=== PATIENT | female | born 1950 | race Caucasian/White ===

== ENCOUNTER 2022-10-17 06:02 | Day surgery (SDC) | payer MEDICARE, OTHER, SELFPAY ==
[2022-10-17] VITALS (27 sets, daily range): BP systolic 106–183; BP diastolic 59–107; PULSE 58–109; RESP 12–18; TEMP 35.8–36.8; O2SAT 91–100; BMI 38.5
[2022-10-17] MEDS: CELECOXIB 200 MG CAPSULE PO (06:30)
[2022-10-17] MEDS: OXYCODONE (CR) 10 MG TAB.ER.12H PO (06:30)
[2022-10-17] MEDS: ACETAMINOPHEN 500 MG TABLET 1000 MG PO ×2 (06:30→14:18)
[2022-10-17] MEDS: SODIUM CHLORIDE 0.9 % (FLUSH) 10 ML SYRINGE IVF (06:45)
[2022-10-17] MEDS: LACTATED RINGERS 1000 ML 1,000 ML 100 ML IV ×2 (06:45→08:18)
[2022-10-17] MEDS: MIDAZOLAM HCL 1 MG/ML inj IVP (07:08)
[2022-10-17] MEDS: fentaNYL 100 MCG/2 ML inj IVP (07:09)
--- NOTE | 2022-10-17 07:15 | CRLHL7_ITS ---
For Patients: As a result of the Cures Act, medical imaging exams and procedure reports are released immediately into your electronic medical record. You may view this report before your referring provider. If you have questions, please contact your health care provider. Indication: Hip replacement surgery Technique: AP hip fluoroscopic images. Fluoroscopy time 64.5 seconds. Findings/Impression: Hardware from a right total hip arthroplasty is in satisfactory position. Dictated by Ciro Ruby MD @ 10/17/2022 10:23:57 AM (Electronically Signed)
--- NOTE | 2022-10-17 07:15 | SUR.PREOP ---
TIME?OUT:?0708 PT/RN/MDA?VERIFICATION?OF?SURGICAL?SITE,?PROCEDURE,?AND?CONSENT OBTAINED?PRIOR?TO?INVASIVE?PROCEDURE.
[2022-10-17] MEDS: CEFAZOLIN 2 GM INJ IVP (07:45)
[2022-10-17] MEDS: TRANEXAMIC ACID 100 MG/ML INJ 1000 MG IV (07:50)
--- NOTE | 2022-10-17 09:05 | P.NB_ITS ---
Nerve Block Nerve Block Time Seen by Provider: 07:12 Date Seen: 10/17/22 Type of block requested by surgeon for post-operative analgesia: AMELIA/LFCN Side: right Time out performed: Yes Verification of patient name: Yes Verification of date of : Yes Site marking: site marked Name of person performing procedure: Hunter Continuous monitoring Was continuous monitoring of O2 sat, B/P, relationship associate, recorded every 15 minutes?: Yes Procedure Checklist: sterile prep, needles and gloves Ultrasound guided. Images saved: Yes Medications given in 5ml increments after negative aspiration: Ropivicaine %: 0.5 mL: 30 Needle gauge: 20 Decadron (mg): 10 Precedex (mcg): 25 Patient tolerated procedure well: Yes Additional comments: Needle noted below psoas tendon needle noted adjacent to LFCN Block Charges Block Charge (with Pro Fee): Other Periph Nerve Block Use of Ultrasound Machine for Block: Yes- US Guidance/pain block
--- NOTE | 2022-10-17 09:05 | W.ANESCHARGE ---
Anesthesia Charges Start Date/Time Anesthesia Start Date: 10/17/22 Anesthesia Start Time: 07:36 Stop Date/Time Anesthesia Stop Date: 10/17/22 Anesthesia Stop Time: 10:04 Summary Extremes of Age - Over 70 or under 1: MDA
--- NOTE | 2022-10-17 09:20 | CRLHL7_ITS ---
For Patients: As a result of the Cures Act, medical imaging exams and procedure reports are released immediately into your electronic medical record. You may view this report before your referring provider. If you have questions, please contact your health care provider. Indication: POST OP KAITLYN Technique: AP hip centered pelvis and lateral view right hip. Findings/Impression: Hardware from a right total hip arthroplasty is in satisfactory position. Bone alignment is normal. No sign of acute fracture. Postop changes are within normal limits. Dictated by Ciro Ruby MD @ 10/17/2022 11:12:06 AM (Electronically Signed)
--- NOTE | 2022-10-17 09:22 | P.ORPRC_ITS ---
Procedure Note Date of procedure: 10/17/22 Procedure: PREOPERATIVE DIAGNOSIS: Right hip osteoarthritis POSTOPERATIVE DIAGNOSIS: Right hip osteoarthritis NAME OF OPERATION: Right total hip arthroplasty SURGEON: Will Yoder MD [employer] OPERATOR: Martha Calles PA-C, DESTINEY Quigley IMPLANTS: 1. [employer] [place] # 54 sector ingrowth cup 2. 36 x 54 +4 neutral polyethylene 3. Actis # 6 standard collared ingrowth stem 4. 36 + 8.5 ceramic femoral head ANESTHESIA: General ESTIMATED BLOOD LOSS: 300 cc COMPLICATIONS: None SPECIMENS: None DRAINS: None PREOPERATIVE ANTIBIOTICS: Ancef 2 grams INDICATIONS: The patient is a 72-year-old with a longstanding history of severe, unrelenting right hip pain secondary to end-stage right hip osteoarthritis. Despite appropriate nonoperative management, including activity modification, use of an assist device, anti-inflammatories, [id number] pain medication, physical therapy and injections, they continue to have pain and disability. Operative intervention was offered. The risks, benefits and expected outcomes were discussed in detail. These included but were not limited to: Infection, bleeding, injury to blood vessel or nerve, venous thromboembolism. All questions were answered to their satisfaction. Use of an shop assistant was necessary throughout the case for patient positioning and safety, soft tissue retraction and closure. PROCEDURE: The patient was placed supine on the [place] table. General anesthesia was administered. The shop assistant made sure the patient was properly positioned. The right hip was prepped and draped in the usual sterile fashion. The image intensifier was brought in for a perfect AP pelvis and a perfect double tear drop AP view of each hip which were used for intraoperative templating with our fluoroscopic guide. An oblique incision was made 3 cm distal and 3 cm lateral to the anterior super ior iliac spine. The shop assistant retracted the soft tissues to protect them. Subcutaneous dissection was taken with electrocautery to the superficial fascia. The fascia was divided in line with the incision. Blunt dissection was carried medially to the tensor fascia vinod and sartorius interval. Deep dissection was carried with electrocautery. The circumflex vessels were cauterized and divided. The capsule was exposed and then divided in a T-fashion, tagged with #1 Ethibond sutures. Retractors were placed in the joint, held by the shop assistant. The corkscrew was placed in the femoral head. The neck cut was made in the subcapital region. We made a second neck cut more distal. The napkin ring of bone was removed. The femoral head was removed intact. Acetabular retractors were placed, held by the shop assistant. The labrum was sharply debrided. The capsule was released. The 43 mm reamer was used to the true medial wall. We then enlarged in 2 mm increments using the image intensifier for our reamer placement. We impacted the cup which had excellent purchase. We placed the hole eliminator and the polyethylene. Attention was then turned to the proximal femur. The limb was placed in 140 degrees of external rotation, maximum extension and adduction. A significant amount of time was spent releasing the capsule to allow us to deliver the femur into the wound and complete the femoral side safely. Retractors were held by the shop assistant throughout the femoral preparation. The juke box servicer and canal finder were used. Broaches were used to a stable size. The calcar reamer was used. Trial components were placed. The hip was reduced and was found to be stable with appropriate soft tissue tension. Length and offset had been nicely restored using the image intensifier and our fluoroscopic guide. Trial components were removed. The stem was impacted. We placed the femoral head. Again, the hip was reduced and was found to be stable with appropriate soft tissue tension. Length and offset had been nicely restored. The shop assistant did a three minute dilute Betadine solution soak. The shop assistant irrigated the wound with 3 liters of normal saline via pulse lavage. The shop assistant repaired the anterior capsule with a #1 Vicryl and our previously placed Ethibond sutures. The shop assistant closed the fascia over the tensor fascia vinod with a #1 PDO Stratafix, subcutaneous tissues with 2-0 Vicryl, skin with a running 3-0 Stratafix and glue. A dry dressing was applied by the shop assistant. Sponge and needle counts were correct x 2. The patient tolerated the procedure well; there were no apparent complications. They were awakened and extubated in the operating room, sent to the Post-Anesthesia Care Unit in satisfactory condition. PLAN: 1. The patient will be mobilized with physical therapy, weight-bearing as tolerates 2. Xarelto x 5 days then aspirin x 30 days will be used for DVT prophylaxis 3. The patient will be discharged once medically appropriate
--- NOTE | 2022-10-17 10:05 | W.ANESCHARGE ---
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
[2022-10-17] MEDS: LACTATED RINGERS 1000 ML 1,000 ML 75 ML IV (10:50)
[2022-10-17] MEDS: ONDANSETRON 2 MG/ML inj 4 MG IVP (12:12)
--- NOTE | 2022-10-17 13:46 | P.IMCN_ITS ---
Date of Consult Patient: [place] Patient Consult date: 10/17/22 Primary Care Provider: Cinthya Tolliver, DO Consult Narrative Reason for consult: Medical management of comorbidities Narrative: Marcelina Benson is a 72 year old female who presented to the hospital today for an elective RTH A. There were no surgical or anesthetic complications noted during procedure. Patient's H&P reviewed, PCP is Dr Tolliver. No concerning findings on Preoperative note. Past medical history significant for: reflux esophagitis, essential HTN, elevated coronary calcium score (on ASA and statin). History of blood clots: No Postoperative plan: Home with Since arrival to the floor, patient has had elevated BP (didn't take her Lisinopril this morning). Review of Systems Status of ROS: Reports: 10 or more systems reviewed and unremarkable except as noted in History and below Narrative: + nausea postoperatively PFSH PFSH Medical History (Updated 10/17/22 @ 14:08 by Oralia Ortiz MD) Stage 3 chronic kidney disease ?N18.30 - Chronic kidney disease, stage 3 unspecified (ICD-10) Vitamin D deficiency ?E55.9 - Vitamin D deficiency, unspecified (ICD-10) Dysthymic disorder ?F34.1 - Dysthymic disorder (ICD-10) Reflux esophagitis ?K21.00 - Gastro-esophageal reflux disease with esophagitis, without bleeding (ICD-10) Hypertension ?I10 - Essential (primary) hypertension (ICD-10) Hyperlipidemia ?E78.5 - Hyperlipidemia, unspecified (ICD-10) GERD (gastroesophageal reflux disease) ?K21.9 - Gastro-esophageal reflux disease without esophagitis (ICD-10) Hematemesis ?K92.0 - Hematemesis (ICD-10) Gastroenteritis ?K52.9 - Noninfective gastroenteritis and colitis, unspecified (ICD-10) Surgical History (Updated 10/17/22 @ 14:08 by Oralia Ortiz MD) History of open reduction and internal fixation (ORIF) procedure ?Z98.890 - Other specified postprocedural states (ICD-10) History of tonsillectomy and adenoidectomy ?Z90.89 - Acquired absence of other organs (ICD-10) History of salpingo-oophorectomy ?Z90.79 - Acquired absence of other genital organ(s) (ICD-10) ?Z90.721 - Acquired absence of ovaries, unilateral (ICD-10) History of cholecystectomy ?Z90.49 - Acquired absence of other specified parts of digestive tract (ICD- 10) Hx of appendectomy ?Z90.49 - Acquired absence of other specified parts of digestive tract (ICD- 10) Family History (Updated 10/04/22 @ 12:29 by Darlene Miranda RN) Brother Skin cancer Sister Skin cancer Mother Diabetes Father Myocardial infarction Peripheral artery disease Social History Highest level of school completed/degree received: GED or equivalent Smoking Status: Never smoker Do you use any of these nicotine containing products: None How often do you have a drink containing alcohol: monthly or less Alcohol type: beer, wine and hard liquor How many standard drinks containing alcohol do you have on a typical day: 1 or 2 How often do you have six or more drinks on one occasion: Never AUDIT-C Alcohol total score: 1 Non-prescribed substance use: denies use Caffeine: Yes (black tea, iced tea, Coke 1/day) service: No Meds Home Medications and Allergies Home Medications Medication Instructions Recorded Confirmed Type aspirin 81 mg tablet,delayed 81 mg PO QDAY 10/02/22 10/17/22 History release (Adult Aspirin Regimen) atorvastatin 20 mg tablet 20 mg PO HS 10/02/22 10/17/22 History fluoxetine 10 mg capsule 30 mg PO DAILY 10/02/22 10/17/22 History lisinopril 30 mg tablet 30 mg PO DAILY 10/02/22 10/17/22 History multivit with min-folic 1 tab PO QDAY 10/02/22 10/17/22 History acid-lutein 400 mcg-250 mcg chewable tablet (Centrum Silver) omeprazole 40 mg capsule,delayed 40 mg PO DAILY 10/02/22 10/17/22 History release vibegron 75 mg tablet (Gemtesa) 75 mg PO DAILY 10/02/22 10/17/22 History biotin 10,000 mcg capsule 10,000 mcg PO DAILY 10/17/22 10/17/22 History Allergies Allergy/AdvReac Type Severity Reaction Status Date / Time penicillin V Allergy Hives Verified 10/17/22 06:37 Sulfa (Sulfonamide Allergy Hives Verified 10/17/22 06:37 Antibiotics) Exam Narrative: Exam Narrative: GEN: Sleepy but arousable, nontoxic HEENT: EOMIs bilaterally, no scleral icterus CV: RRR, No concerning murmurs R: LCTA bilaterally without concerning wheezing, air movement adequate Ext: wwp, no concerning edema Skin: No concerning skin lesions or rashes on exposed skin Neuro: Nonfocal Psych: Appropriate Const: Vital Signs, click to edit/add: Vital Signs - 24 hr 10/17/22 06:27 10/17/22 07:10 10/17/22 07:15 Temperature 97.1 F L Pulse Rate 75 65 60 Pulse Rate [Left P ulse Oximeter] Respiratory Rate 16 16 16 Blood Pressure 155/81 H 130/61 115/64 Blood Pressure [Ri ght Arm] Pulse Oximetry 97 96 96 Oxygen Delivery Me thod Room Air Nasal Cannula Nasal Cannula Oxygen Flow Rate 2 2 10/17/22 07:20 10/17/22 07:25 10/17/22 07:30 Temperature Pulse Rate 69 60 58 L Pulse Rate [Left P ulse Oximeter] Respiratory Rate 16 16 16 Blood Pressure 110/69 106/59 L 106/63 Blood Pressure [Ri ght Arm] Pulse Oximetry 96 96 96 Oxygen Delivery Me thod Nasal Cannula Nasal Cannula Nasal Cannula Oxygen Flow Rate 2 2 2 10/17/22 10:00 10/17/22 10:05 10/17/22 10:10 Temperature 97.9 F Pulse Rate 94 94 89 Pulse Rate [Left P ulse Oximeter] Respiratory Rate 16 16 14 Blood Pressure 143/89 H 153/88 H 131/80 Blood Pressure [Ri ght Arm] Pulse Oximetry 98 98 97 Oxygen Delivery Me thod Nasal Cannula Oxygen Flow Rate 2 10/17/22 10:15 10/17/22 10:20 10/17/22 10:25 Temperature 97.0 F L Pulse Rate 92 84 88 Pulse Rate [Left P ulse Oximeter] Respiratory Rate 14 12 14 Blood Pressure 133/100 H 167/87 H 146/88 H Blood Pressure [Ri ght Arm] Pulse Oximetry 95 97 95 Oxygen Delivery Me thod Room Air Oxygen Flow Rate 10/17/22 10:29 10/17/22 10:34 10/17/22 10:45 Temperature 96.4 F L 96.7 F L Pulse Rate 92 Pulse Rate [Left P ulse Oximeter] 88 91 Respiratory Rate 14 18 18 Blood Pressure 139/84 Blood Pressure [Ri ght Arm] 166/95 H 159/96 H Pulse Oximetry 95 94 94 Oxygen Delivery Me thod Room Air Room Air Oxygen Flow Rate 10/17/22 10:55 10/17/22 11:00 10/17/22 11:15 Temperature 96.4 F L 96.8 F L 97.0 F L Pulse Rate 88 Pulse Rate [Left P ulse Oximeter] 87 95 Respiratory Rate 18 18 18 Blood Pressure [facility] 166/95 H 165/99 H 160/92 H Pulse Oximetry 97 93 Oxygen Delivery Me thod Room Air Room Air Room Air Oxygen Flow Rate 10/17/22 11:30 10/17/22 12:00 Temperature 97.3 F L 97.3 F L Pulse Rate Pulse Rate [Left P ulse Oximeter] 93 93 Respiratory Rate 18 18 Blood Pressure Blood [facility] 142/94 H 164/99 H Pulse Oximetry 93 100 Oxygen Delivery Me thod Room Air Room Air Oxygen Flow Rate Assessment and Plan Assessment and plan (1) S/P hip replacement: Problem comment: - R, 10/17/22, Dr. Yoder Status: Acute (2) GERD (gastroesophageal reflux disease): Problem comment: - continue home PPI Status: Acute (3) Hypertension: Problem comment: - continue home medications Status: Acute (4) Hyperlipidemia: Problem comment: - continue home statin Status: Acute Plan - pain management and prophylaxis per Ortho - anticipate routine postoperative course - continue home medications
[2022-10-17] MEDS: CEFAZOLIN 2 GM in 0.9 % SODIUM CHLORIDE Mini-bag 100 ML IVPB ×2 (14:19→21:31)
--- NOTE | 2022-10-17 15:49 | PC.NURSE ---
Pt. up to floor at 1034. Sedated and sleepy. Pt's dressing to right hip c/D/I. Pt. had some Nausea, Zofran administered x1. Denies pain, only used scheduled tylenol x1. IV in L hand patent, Active ice to op site, Florentin Teds and SCD's. Tolerating ice chips, fluids. Up to commode x1 and voided 100cc.
[2022-10-17] MEDS: SENNOSIDES 1 TAB TABLET 2 TAB PO (21:29)
[2022-10-17] MEDS: ATORVASTATIN 10 MG TABLET 20 MG PO (21:29)
--- NOTE | 2022-10-17 22:58 | PC.NURSE ---
Shift Summary: Patient pleasant and cooperative. Up with one assist, walker and gait belt. Ice pack to surgical site, dressing dry and intact. Denies pain even with ambulation. Voiding well. Poor appetite, some nausea with movement that quickly resolves. New IV placed in right wrist by ORLIN Atwood. Vitals stable and WNL. Lung sounds clear.
[2022-10-18] MEDS: ACETAMINOPHEN 500 MG TABLET 1000 MG PO ×2 (00:17→06:34)
[2022-10-18 03:00] VITALS: BP 147/76; PULSE 76; RESP 16; TEMP 36.7; O2SAT 94
[2022-10-18] MEDS: OMEPRAZOLE 20 MG CAPSULE DR 40 MG PO (06:33)
--- NOTE | 2022-10-18 06:43 | PC.NURSE ---
[id number]: Patient did well overnight. No acute distress. Patient had no c/o pain. Patient remained VSS. Patient with no n/v. Patient tolerating fluids and urinating well.
[2022-10-18 06:52] LABS: Hematocrit 32.5 % (33.0-51.0); Hemoglobin* 10.8 gm/dL (12.0-16.0); Immature Granulocytes Abs Auto 0.02 K/uL (0.00-0.30); Immature Granulocytes Pct Auto 0.2 %; Lymphocytes Percent Auto 5.2 % (20-44); Mean Corpuscular HGB Conc 33 gm/dL (32-36); Mean Corpuscular Hemoglobin 28 pg (26-34); Mean Corpuscular Volume 83 fL (80-100); Monocytes Percent Auto 7.8 % (0.0-11.0); Neutrophils Percent Auto 86.8 % (42.0-72.0); Platelet Count* 221 K/uL (140-440); RDW Coefficient of Variation % 13.1 % (11.5-15.5); Red Blood Count 3.91 m/uL (4.00-5.20); White Blood Count* 10.72 K/uL (4.50-11.00)
[2022-10-18 06:58] LABS: Slide Review Reflex No
[2022-10-18 07:16] LABS: Potassium* 4.6 mmol/L (3.6-5.1); Sodium* 135 mmol/L (135-149)
[2022-10-18 07:19] LABS: Blood Urea Nitrogen* 14 mg/dL (7-30); Creatinine* 0.8 mg/dL (0.5-1.5); Est. Creatinine Clearance* 50.91; Estimated Glomerular Filt Rate 79 ml/min
[2022-10-18 07:46] VITALS: BP 153/73; PULSE 70; RESP 20; TEMP 36.9; O2SAT 97
[2022-10-18] MEDS: lisinopriL 10 MG TABLET 30 MG PO (08:09)
[2022-10-18] MEDS: RIVAROXABAN 10 MG TABLET PO (08:10)
[2022-10-18] MEDS: OXYCODONE 5 MG TABLET PO (08:10)
[2022-10-18] MEDS: FLUOXETINE HCL 10 MG CAPSULE 30 MG PO (08:10)
[2022-10-18] MEDS: SENNOSIDES 1 TAB TABLET 2 TAB PO (08:16)
--- NOTE | 2022-10-18 08:23 | PM.ORPN ---
Subjective Subjective Time Seen by Provider: 07:30 Date Seen: 10/18/22 Principal diagnosis: Status post right hip replacement Interval history: Marcelina is trouble this morning. She will be going home upon discharge. Her Mason will be assisting her in the home. Ortho Exam Narrative Exam Narrative: Alert and oriented x3. Patient is in no acute distress. Converses without labored breathing. Hearing is grossly intact. Ambulates with a walker. Examination of the right lower extremity shows the dressing is intact. Mild ecchymosis. Mild soft tissue edema. CMS is intact right lower extremity. Bilateral calves are soft and nontender. Const Vital Signs, click to edit/add: Vital Signs - 24 hr 10/17/22 10:00 10/17/22 10:05 10/17/22 10:10 Temperature 97.9 F Pulse Rate 94 94 89 Pulse Rate [Left Pulse Oximeter] Respiratory Rate 16 16 14 Blood Pressure 143/89 H 153/88 H 131/80 Blood Pressure [Right Arm] Pulse Oximetry 98 98 97 Oxygen Delivery Method Nasal Cannula Oxygen Flow Rate 2 10/17/22 10:15 10/17/22 10:20 10/17/22 10:25 Temperature 97.0 F L Pulse Rate 92 84 88 Pulse Rate [Left Pulse Oximeter] Respiratory Rate 14 12 14 Blood Pressure 133/100 H 167/87 H 146/88 H Blood Pressure [Right Arm] Pulse Oximetry 95 97 95 Oxygen Delivery Method Room Air Oxygen Flow Rate 10/17/22 10:29 10/17/22 10:34 10/17/22 10:45 Temperature 96.4 F L 96.7 F L Pulse Rate 92 Pulse Rate [Left Pulse Oximeter] 88 91 Respiratory Rate 14 18 18 Blood Pressure 139/84 Blood Pressure [Right Arm] 166/95 H 159/96 H Pulse Oximetry 95 94 94 Oxygen Delivery Method Room Air Room Air Oxygen Flow Rate 10/17/22 10:55 10/17/22 11:00 10/17/22 11:15 Temperature 96.4 F L 96.8 F L 97.0 F L Pulse Rate 88 Pulse Rate [Left Pulse Oximeter] 87 95 Respiratory Rate 18 18 18 Blood Pressure Blood Pressure [Right Arm] 166/95 H 165/99 H 160/92 H Pulse Oximetry 97 93 Oxygen Delivery Method Room Air Room Air Room Air Oxygen Flow Rate 10/17/22 11:30 10/17/22 12:00 10/17/22 12:30 Temperature 97.3 F L 97.3 F L 97.3 F L Pulse Rate Pulse Rate [Left Pulse Oximeter] 93 93 88 Respiratory Rate 18 18 18 Blood Pressure Blood Pressure [Right Arm] 142/94 H 164/99 H 156/90 H Pulse Oximetry 93 100 93 Oxygen Delivery Method Room Air Room Air Room Air Oxygen Flow Rate 10/17/22 13:00 10/17/22 14:00 10/17/22 15:00 Temperature 97.8 F 97.6 F 96.8 F L Pulse Rate Pulse Rate [Left Pulse Oximeter] 85 88 100 Respiratory Rate 18 18 16 Blood Pressure Blood Pressure [Right Arm] 166/107 H 183/99 H 152/90 H Pulse Oximetry 94 93 93 Oxygen Delivery Method Room Air Room Air Room Air Oxygen Flow Rate 10/17/22 16:00 10/17/22 18:39 10/17/22 23:00 Temperature 96.8 F L 97.8 F 98.2 F Pulse Rate Pulse Rate [Left Pulse Oximeter] 79 78 109 H Respiratory Rate 14 16 Blood Pressure Blood Pressure [Right Arm] 145/79 H 152/73 H 162/104 H Pulse Oximetry 91 94 95 Oxygen Delivery Method Room Air Room Air Room Air Oxygen Flow Rate 10/17/22 23:00 10/18/22 03:00 Temperature 98.1 F Pulse Rate Pulse Rate [Left Pulse Oximeter] 109 H 76 Respiratory Rate 16 16 Blood Pressure Blood Pressure [Right Arm] 147/76 H Pulse Oximetry 94 Oxygen Delivery Method Room Air Oxygen Flow Rate Assessment and Plan Assessment and plan (1) S/P hip replacement: Problem details: - R, 10/17/22, Dr. Yoder Status: Acute Assessment and Plan: Plan for discharge is today to home if they meet discharge criteria. DVT prophylaxis includes Xarelto 10 mg daily for total of 5 days, then aspirin 81 mg twice daily for 30 days, Latrell stockings x1 month may remove for 1 hr per day, frequent ambulation Remove dressing 1 week. Observe wound and phone Orthopedics with any questions or concerns Use Ice on operative hip unrestricted. Return to clinic in 1 week with PA for a wound check Return to clinic in [address] Yoder Minimize narcotic use. Wean off and discontinue soon as possible. Activities as tolerated. No strenuous activity. Attend outpt PT (2) GERD (gastroesophageal reflux disease): Problem details: - continue home PPI Status: Acute (3) Hypertension: Problem details: - continue home medications Status: Acute (4) Hyperlipidemia: Problem details: - continue home statin Status: Acute
--- NOTE | 2022-10-18 12:06 | PC.SOCIAL ---
Per therapy, pt is moving around well with minimal pain. Pt has assistance at home with family members. There are no identified social work needs.
--- NOTE | 2022-10-18 13:15 | PC.NURSE ---
Pt alert and oriented during shift. Pt had pain of 2 during shift. See EMAR for intervention. Pt SBA. Pt's dressing dry and intact. Pt discharged home with . Pt has out Pt therapy set up and follow up appointment with PA scheduled. Pt educated on use of IS, Activity, Medications, SS of infection and when to follow up/return to hospital.
== END 2022-10-18 11:20 | disposition home or self-care (01) ==
LOC: OR 06:02 → MEDSURG 06:06
PROVIDERS: PCP Family Medicine; Visit Provider Orthopaedic Surgery
PROC: (CPT 27130; principal; 2022-10-17 07:15)
DX: M16.11 Unilateral primary osteoarthritis, right hip (principal); G89.18 Other acute postprocedural pain; K21.00 Gastro-esophageal reflux disease with esophagitis, without bleeding; I12.9 Hypertensive chronic kidney disease with stage 1 through stage 4 chronic kidney disease, or unspecified chronic kidney disease; N18.30 Chronic kidney disease, stage 3 unspecified; E78.5 Hyperlipidemia, unspecified
CPT/HCPCS: 27130; 01214; 36415; 64450; 73501; 76000; 76942; 82565; 84132; 84295; 84520; 85025; 97110; 97116; 97161; 97165; 97530; 97535; 99100; A9270; C1776; J0330; J0690; J1100; J1170; J2250; J2405; J2704; J2795; J3010; J3490; J7120

== ENCOUNTER 2022-12-07 10:15 | Outpatient (RCR) | payer MEDICARE, OTHER, SELFPAY ==
--- NOTE | 2022-10-03 12:38 | PT.OPEX ---
[facility] INITIAL EVAL REQUIRES SIGNATURE PT [facility] Outpatient Eval Start: 10/03/22 07:34 Freq: Status: Active Protocol: Document 10/03/22 07:35 TERRY (Rec: 10/03/22 12:35 TERRY [id number]) E-signed By Jamie Owen DPT Physical Therapy Outpatient Evaluation Insurance Information Recert Due Date 12/27/22 Insurance Name Medicare B Medical Diagnosis R hip OA R KAITLYN DOS 10/17/22 Treating Diagnosis R hip pain muscle weakness Referring MD david duque Subjective Subjective Marcelina comes into clinic for a pre op visit prior to her 10/17 R KAITLYN surgery. States she has been dealing with hip pain for years now. Has tried cortisone injection that helped for awhile but stopped being as effective. Did see Dr Kramer yesterday where they decided replacement is needed. HAs not been able to walk too long due to her hip pain the last several. Notes she goes up the stairs one at a time and side way in order to perform them noticeably. Pain Comments -12/28 Date of Surgery (If applicable) 10/17/22 Current Work Status Retired Precautions Treatment Precautions/Contraindications depression, arthritis allergies Objective Other/Pertinent Objective GAIT ambulates in step through pattern with increased weight shift over R stance. HIP ROM Flexion: 85 degrees before pain Extension: neutral Internal Rotation: 10 degrees before pain External Rotation 45 Abduction LLE MMT: WNL ON L Hip flexion: R 4/5 Hip abduction: R 3+/5 Knee flexion: R 4+/5 Knee extension: R4 /5 Assessment Assessment/Impression .assess Pt is a 72 yr old female who presents with concerns of R hip OA . Patient also has notable objective findings including limited ROM, impaired balance, decreased strength also likely contributing to the problem. Patient is a good candidate for skilled therapy to target deficits described above. Skilled PT intervention is necessary for use of therapeutic exercise manual therapy, neuromuscular re- education, gait training, and therapeutic activity. Functional impairments include difficulty with: walking, standing, stairs transfers . See appropriate sections of PT eval for complete list of goals and POC. D/C plan and criteria is for pt to achieve the goals as listed below or until max rehab potential is met. 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 of pain/symptoms 2) Pt will improve hip AROM at least 0-90* for improved sit to stand transfers 3) Patient will ascend/descend at least 12 steps using single rail and reciprocal pattern to improve ease of mobility at home/community 4)Pt will ambulate at least 45 -60 minutes with SPC to no device, minimal antalgic gait for improved community mobility Coordination/Communication With Referral Source Treatment Plan/Direct Interventions Gait Training,Joint Mobilization,Manual Therapy, Neuromuscular Re-ed,Self-Care/ Home Management,Therapeutic Activities,Therapeutic Exercises Frequency/Duration 1 x week for 6-10 weeks Patient Will Be Discharged From Therapy Completion of LTG(s), Independent w/HEP Evaluation Billing Untimed Code Treatment Minutes 20 Complexity Low Certification Information Initial Certification Date 10/03/22 Ending Certification Date 12/27/22 Physician Comment/Change : Physician NPI Number #
== END 2022-12-07 12:49 | disposition home or self-care (01) ==
PROVIDERS: PCP Family Medicine; Visit Provider Orthopaedic Surgery
DX: M16.11 Unilateral primary osteoarthritis, right hip (principal); Z51.89 Encounter for other specified aftercare
CPT/HCPCS: 97110; 97112; 97140; 97161; 97164

== ENCOUNTER 2023-09-29 08:55 | Outpatient (CLI) | payer OTHER, SELFPAY | END 2023-09-29 08:56 | disposition home or self-care (01) | LOC: NFLDREF 10-15 16:37 | PROVIDERS: PCP Family Medicine; Referring Provider Family Medicine; Visit Provider Physician Assistant | DX: R30.0 Dysuria (principal); N39.0 Urinary tract infection, site not specified | CPT/HCPCS: 87086; 87186 ==

== ENCOUNTER 2023-10-25 12:56 | Outpatient (CLI) | payer OTHER, SELFPAY | END 2023-10-25 12:57 | disposition home or self-care (01) | PROVIDERS: PCP Family Medicine; Visit Provider Physician Assistant | DX: R30.0 Dysuria (principal) | CPT/HCPCS: 87086; 87186 ==

== ENCOUNTER 2024-03-01 05:57 | Outpatient (CLI) | payer OTHER, SELFPAY | END 2024-03-01 05:58 | disposition home or self-care (01) | LOC: AMB 03-03 21:55 | PROVIDERS: PCP Family Medicine; Visit Provider Emergency Medicine | DX: R41.82 Altered mental status, unspecified (principal) | CPT/HCPCS: A0425; A0427 ==

== ENCOUNTER 2024-03-01 06:25 | Inpatient (IN) | payer OTHER, SELFPAY ==
[2024-03-01] VITALS (9 sets, daily range): BP systolic 154–208; BP diastolic 79–116; PULSE 91–105; RESP 16–20; TEMP 36.7–37.1; O2SAT 90–98; BMI 32.5; BMI 36.0
--- NOTE | 2024-03-01 06:34 | CT_ITS ---
Patient: FRANCISCO JAVIER ZUÑIGA Facility:?[facility] RIS Patient ID:?[id number] Site Patient ID:?[id number]. Site :?[id number] Study:?CT-Head WO STROKE CODE-03/01/2024 6:59:25 AM Ordering Physician:Erick Ledbetter Final Report: INDICATION: Left hemiparesis. TECHNIQUE: CT head without contrast. COMPARISON: None. FINDINGS: CSF spaces: Within normal limits for age. Brain parenchyma and extra-axial spaces: The kelly-white differentiation is normal. No sign of acute ischemia. No sign of mass, hemorrhage, or midline shift. No extra-axial fluid collection. Skull base and calvarium: The visualized paranasal sinuses and mastoid air cells demonstrate no acute or significant findings. The visualized orbits are grossly unremarkable. No skull fractures. IMPRESSION: Unremarkable noncontrast head CT. No sign of acute ischemia or intracranial hemorrhage. Please note that all CT scans at this facility use dose modulation, iterative reconstruction, and/or weight-based dosing when appropriate to reduce radiation dose to as low as reasonably achievable. Dictated by Neftali Weber MD @ 03/01/2024 7:08:34 AM ----- ADDENDUM ----- Results discussed by phone with Dr. Hall at 0715 hours. Dictated by Neftali Weber MD @ Mar 01 2024 7:16AM Signed by:?Neftali Weber MD @03/01/2024 7:08:34 AM (Electronic Signature)
--- NOTE | 2024-03-01 06:34 | CRLHL7_ITS ---
For Patients: As a result of the Century Cures Act, medical imaging exams and procedure reports are released immediately into your electronic medical record. You may view this report before your referring provider. If you have questions, please contact your health care provider. DATE: 03/01/2024 CLINICAL HISTORY: Patient with focal neurological deficits. TECHNIQUE: Standard helical CT image acquisition of the neck up to the skull base after bolus intravenous contrast enhancement. 2D and 3D MIP images for post-processing were performed and interpreted on an independent workstation and 3D images were permanently archived. COMPARISON: CT same day. FINDINGS: The origins of the great vessels from the aortic arch are patent. The origin of the right vertebral artery is patent. The origin of the left vertebral artery is patent. The common carotid arteries are patent. There is plaque without stenosis at the origin of the right internal carotid artery by NASCET criteria. There is a mild (<50%) stenosis at the origin of the left internal carotid artery by NASCET criteria. This is caused by non-calcified plaque with a <2mm residual lumen. The rest of the cervical segments of the internal carotid arteries are patent up to the skull base. The vertebral arteries are codominant. The cervical segments of the vertebral arteries are patent up to the skull base. The visualized lung apices are unremarkable. The thyroid gland is unremarkable. The soft tissues of the neck are unremarkable. There are degenerative changes in the cervical spine. IMPRESSION: Mild (<50%) stenosis at the origin of the left internal carotid artery by NASCET criteria. This is caused by non-calcified plaque with a <2mm residual lumen. Please note that all CT scans at this facility use dose modulation, iterative reconstruction, and/or weight-based dosing when appropriate to reduce radiation dose to as low as reasonably achievable. Dictated by Marcella Felipe MD @ 03/01/2024 10:24:26 AM (Electronically Signed)
--- NOTE | 2024-03-01 06:34 | CRLHL7_ITS ---
For Patients: As a result of the Century Cures Act, medical imaging exams and procedure reports are released immediately into your electronic medical record. You may view this report before your referring provider. If you have questions, please contact your health care provider. DATE: 03/01/2024 CLINICAL HISTORY: Patient with focal neurological deficits. TECHNIQUE: Standard helical CT image acquisition through the intracranial circulation following intravenous administration of contrast material with bolus tracking. 2D and 3D MIP images for post-processing were performed and interpreted on an independent workstation and 3D images were permanently archived. COMPARISON: CT same day. FINDINGS: There is no cerebral aneurysm or large vessel occlusion. The right internal carotid artery is normal. The right middle cerebral artery and its branches are normal. The right anterior cerebral artery and its branches are normal. The left internal carotid artery is normal. The left middle cerebral artery and its branches are normal. The left anterior cerebral artery and its branches are normal. The anterior communicating artery is well visualized and appears normal. The right vertebral artery and PICA are normal. The left vertebral artery and PICA are normal. The left vertebral artery is dominant. The basilar artery is patent and appears normal. The right posterior cerebral artery is normal. The left posterior cerebral artery is normal. The visualized venous structures are patent. IMPRESSION: Patent proximal intracranial vasculature without intracranial aneurysms. Please note that all CT scans at this facility use dose modulation, iterative reconstruction, and/or weight-based dosing when appropriate to reduce radiation dose to as low as reasonably achievable. Dictated by Marcella Felipe MD @ 03/01/2024 10:26:46 AM (Electronically Signed)
--- NOTE | 2024-03-01 06:44 | ED_ITS ---
HPI - General Adult General Date Seen: 03/01/24 Chief complaint: Neuro Symptoms/Altered Deficit Stated complaint: Stroke symptoms Time Seen by Provider: 03/01/24 06:34 Source: EMS, RN notes reviewed and old records reviewed Mode of arrival: EMS Limitations: no limitations History of Present Illness HPI narrative: Patient is a 73-year-old woman brought in by EMS after she awakened this morning noting left hemiparesis. No history of stroke, does have a history of high cholesterol hypertension, no reported atrial fibrillation or anticoagulation. History is provided mostly by EMS who noted significant hypertension, blood sugar of 165 and dense left-sided hemiparesis. In my conversation with her, she denies pain. Related Data Home Medications ?Medication ?Instructions ?Recorded ?Confirmed aspirin 81 mg tablet,delayed 81 mg PO DAILY 10/02/22 03/01/24 release (Adult Aspirin Regimen) atorvastatin 20 mg tablet 20 mg PO HS 10/02/22 03/01/24 fluoxetine 10 mg capsule 30 mg PO DAILY 10/02/22 03/01/24 lisinopril 30 mg tablet 30 mg PO DAILY 10/02/22 03/01/24 multivit with min-folic 1 tab PO DAILY 10/02/22 03/01/24 acid-lutein 400 mcg-250 mcg chewable tablet (Centrum Silver) vibegron 75 mg tablet (Gemtesa) 75 mg PO DAILY 10/02/22 03/01/24 omeprazole 20 mg capsule,delayed 20 mg PO DAILY 10/17/23 03/01/24 release estradiol 0.01% (0.1 mg/gram) 1 g vaginal 2XW 03/01/24 03/01/24 vaginal cream glucosamine-chondroitin 500 mg-400 1 tab PO DAILY 03/01/24 03/01/24 mg tablet (Cosamin DS) miconazole nitrate 2 % topical 1 applic topical BID 03/01/24 03/01/24 cream Allergies Allergy/AdvReac Type Severity Reaction Status Date / Time penicillin V Allergy Intermediate Hives Verified 03/01/24 07:09 Sulfa (Sulfonamide Allergy Intermediate Hives Verified 03/01/24 07:09 Antibiotics) Review of Systems Status of ROS: Reports: 10 or more systems reviewed and unremarkable except as noted in History and below [facility] Medical History (Updated 03/03/24 @ 15:22 by Ruby Parry MD) Recurrent UTI ?N39.0 - Urinary tract infection, site not specified (ICD-10) Overactive bladder ?N32.81 - Overactive bladder (ICD-10) Osteopenia ?M85.80 - Other specified disorders of bone density and structure, unspecified site (ICD-10) Elevated coronary artery calcium score ?R93.1 - Abnormal findings on diagnostic imaging of heart and coronary circulation (ICD-10) Stage 3 chronic kidney disease ?N18.30 - Chronic kidney disease, stage 3 unspecified (ICD-10) Vitamin D deficiency ?E55.9 - Vitamin D deficiency, unspecified (ICD-10) Dysthymic disorder ?F34.1 - Dysthymic disorder (ICD-10) Reflux esophagitis ?K21.00 - Gastro-esophageal reflux disease with esophagitis, without bleeding (ICD-10) Hypertension ?I10 - Essential (primary) hypertension (ICD-10) Hyperlipidemia ?E78.5 - Hyperlipidemia, unspecified (ICD-10) GERD (gastroesophageal reflux disease) ?K21.9 - Gastro-esophageal reflux disease without esophagitis (ICD-10) Hematemesis ?K92.0 - Hematemesis (ICD-10) Gastroenteritis ?K52.9 - Noninfective gastroenteritis and colitis, unspecified (ICD-10) Surgical History (Updated 03/01/24 @ 16:11 by Ruby Parry MD) H/O colonoscopy ?Z98.890 - Other specified postprocedural states (ICD-10) 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) ?Z96.641 - Presence of right artificial hip joint (ICD-10) History of phacoemulsification of cataract of right eye with intraocular lens implantation (09/11/12) ?Z98.41 - Cataract extraction status, right eye (ICD-10) ?Z96.1 - Presence of intraocular lens (ICD-10) History of phacoemulsification of cataract of left eye with intraocular lens implantation (09/25/12) ?Z98.42 - Cataract extraction status, left eye (ICD-10) ?Z96.1 - Presence of intraocular lens (ICD-10) History of open reduction and internal fixation (ORIF) procedure ?Z98.890 - Other specified postprocedural states (ICD-10) History of tonsillectomy and adenoidectomy ?Z90.89 - Acquired absence of other organs (ICD-10) History of salpingo-oophorectomy ?Z90.79 - Acquired absence of other genital organ(s) (ICD-10) ?Z90.721 - Acquired absence of ovaries, unilateral (ICD-10) History of cholecystectomy ?Z90.49 - Acquired absence of other specified parts of digestive tract (ICD- 10) Hx of appendectomy ?Z90.49 - Acquired absence of other specified parts of digestive tract (ICD- 10) Family History Brother Skin cancer Sister Skin cancer Mother Diabetes Father Myocardial infarction Peripheral artery disease Social History (Updated 03/01/24 @ 16:12 by Ruby Parry MD) Narrative: . , Mason, daughter and son are here with her today. She smoked socially in her 20s, but nothing since then. Denies alcohol use or recreational drug use. She lives in a two-story house with her . What is your current living situation?: I presently have a place to live Problems where you live: no known problems Problems where you live details: none In the past 12 months, utilities in danger of being shut off: no In past 12 months, lack of transportation kept you from medical appts, meetings, work, or getting things needed for daily living: no In the past 12 mos, have been you worried that your food would run out before you had money to buy more?: never true In the past 12 mos, the food you bought just didn't last and you didn't have money to buy more?: never true Highest level of school completed/degree received: Bachelor's degree Smoking Status: Never smoker Do you use any of these nicotine containing products: None Second hand tobacco smoke exposure: No How often do you have a drink containing alcohol: monthly or less Alcohol type: beer, wine and hard liquor How many standard drinks containing alcohol do you have on a typical day: 1 or 2 How often do you have six or more drinks on one occasion: Never AUDIT-C Alcohol total score: 1 Non-prescribed substance use: denies use Caffeine: Yes (black tea, iced tea, Coke 1/day) How often does anyone, including family, friends and others, physically hurt you : never How often does anyone, including family, friends and others, insult or talk down to you: never How often does anyone, including family, friends and others, threaten you with harm: never How often does anyone, including family, friends and others, scream or curse at you: never service: No Exam Narrative: Exam Narrative: Vital signs as noted above. In general, an alert, elderly woman. Head: Normocephalic, atraumatic. Eyes: Pupils are equal reactive. Extraocular movements are full. Conjunctivae are normal. ENT: Mucous membranes are moist. Throat is normal. Neck: Supple without lymphadenopathy. Heart: Regular rate and rhythm. No murmur or rub. Lungs: Clear bilaterally. No increased work of breathing, crackles or wheezes. Abdomen: Soft and nontender. No organomegaly. Extremities: Well perfused. No edema. No calf tenderness. Pulses intact. Neurologic: Patient is alert and oriented to person and place. Speech is fluent, likely mildly dysarthric. She has paralysis of the lower left face but he is able to raise her eyebrow to some degree on the left side. She states that she is unable to move the left arm or left leg at all. She does have intact sensation to light touch but feels that her ability to sense is decreased. She does not have the ability to sense sharp touch. NIH score of 11-12. Affect: Normal. Skin: Warm and dry. Well perfused. Const: Vital Signs, click to edit/add: Vital Signs - 24 hr 03/01/24 06:35 Pulse Oximetry 95 Documenting provider has reviewed patient's vital signs: yes Course Course ED Course: On arrival at 6:30 a.m. she went directly to CT and had a CT of the head without contrast as well as a CT angiogram of the head and neck. An IV had been established by paramedics. She remains hypertensive with a systolic blood pressure of 208, for now, allowing some permissive hypertension. She had an EKG which shows a tachycardia, ventricular rate of 114. I do wonder if this might be an atrial flutter, I do not have a previous EKG, she has a right bundle branch block, difficult to assess rhythm definitively due to significant artifact. Labs ordered, neurology was consulted at 6:45 a.m. with last known well time of 04 19 last night she is likely outside the window for IV lytics, awaiting imaging to see if other options are available. Care reviewed with neurology, they evaluated the patient as well. CT angiogram was negative per stroke neurologist for large vessel occlusion, read was not completed at the time of patient's admission. Neurology recommended permissive hypertension up to 220, admission to the hospital and MRI as soon as feasible. This will be accomplished later this morning we have 2 techs here. In the meantime, she will be admitted to the hospital. She did receive rectal aspirin, 300 mg. She has some dysarthria, would suspect that she will need a swallow evaluation. Neurologic exam is unchanged at this time, case discussed with hospitalist and admitted to the hospitalist service. Critical care time 30 minutes Vital Signs Vital signs: Initial Vital Signs Pulse Oximetry 95 03/01/24 06:35 Vital Signs Pulse Oximetry 95 03/01/24 06:35 Temperature 97.3 F L 03/03/24 23:00 Pulse Rate 86 03/03/24 23:00 Respiratory Rate 16 03/03/24 23:00 Blood Pressure 135/66 03/03/24 23:00 Pulse Oximetry 96 03/03/24 23:00 Oxygen Delivery Method Room Air 03/03/24 23:00 Medications Administered Medications: Generic Name Dose Route Start Last Admin Trade Name Freq PRN Reason Stop Dose Admin Acetaminophen 650 mg 03/01/24 17:14 03/03/24 23:24 Acetaminophen 325 Mg Tablet PO 650 mg Q6H PRN Administration As needed for fever, headache, or minor pain Aspirin 81 mg 03/03/24 09:00 03/03/24 10:03 Aspirin 81 Mg Tablet Ec PO 81 mg DAILY LUIS E Administration Atorvastatin Calcium 20 mg 03/01/24 21:00 03/03/24 19:48 Atorvastatin 10 Mg Tablet PO 20 mg HS LUIS E Administration Baclofen 5 mg 03/03/24 21:00 03/03/24 20:50 Baclofen 10 Mg Tablet PO 5 mg BID LUIS E Administration Clopidogrel Bisulfate 75 mg 03/03/24 09:00 03/03/24 10:04 Clopidogrel 75 Mg Tablet PO 75 mg DAILY LUIS E Administration Enoxaparin Sodium 40 mg 03/01/24 21:00 03/03/24 19:50 Enoxaparin 40 Mg/0.4 Ml Inj SUBCUT 40 mg HS LUIS E Administration Fluoxetine HCl 30 mg 03/03/24 09:00 03/03/24 10:02 Fluoxetine Hcl 10 Mg Capsule PO 30 mg DAILY LUIS E Administration Lisinopril 30 mg 03/03/24 09:00 03/03/24 10:03 Lisinopril 20 Mg Tablet PO 30 mg DAILY LUIS E Administration Melatonin 3 mg 03/01/24 21:45 03/03/24 19:48 Melatonin 3 Mg Tablet PO 3 mg HS LUIS E Administration Ondansetron HCl 4 mg 03/01/24 16:00 03/03/24 17:14 Ondansetron 2 Mg/Ml Inj IVP 4 mg Q4H PRN Administration Nausea Sodium Chloride 5 ml 03/01/24 10:39 03/03/24 17:14 Sodium Chloride 0.9 % (Flush) 10 Ml Syringe IVF 5 ml .FLUSH PRN Administration Sodium Chloride 5 ml 03/01/24 21:00 03/03/24 19:53 Sodium Chloride 0.9 % (Flush) 10 Ml Syringe IVF 5 ml BID LUIS E Administration Discontinued Medications Generic Name Dose Route Start Last Admin Trade Name Freq PRN Reason Stop Dose Admin Aspirin 300 mg 03/01/24 07:35 03/01/24 08:23 Aspirin 300 Mg Supp OK 03/01/24 07:36 300 mg ONCE ONE Administration Aspirin 325 mg 03/02/24 09:00 03/02/24 09:16 Aspirin Ec 325 Mg Tablet PO 325 mg DAILY LUIS E Administration Clopidogrel Bisulfate 300 mg 03/02/24 13:21 03/02/24 13:42 Clopidogrel 75 Mg Tablet PO 03/02/24 13:22 300 mg ONCE ONE Administration Lorazepam 0.5 mg 03/02/24 22:51 03/02/24 23:25 Lorazepam 0.5 Mg Tablet PO 03/02/24 22:52 0.5 mg ONCE ONE Administration Non-Formulary Medication 1 gm 03/02/24 17:30 03/02/24 19:20 Estradiol VAGINAL Not Given 2XW LUIS E Ondansetron HCl 4 mg 03/01/24 06:55 03/01/24 07:00 Ondansetron 2 Mg/Ml Inj IVP 03/01/24 06:56 4 mg ONCE ONE Administration Medical Decision Making Lab Data Labs: Lab Results 03/01/24 Range/Units 06:50 WBC 6.39 (4.50-11.00) K/uL RBC 4.63 (4.00-5.20) m/uL Hgb 12.4 (12.0-16.0) gm/dL Hct 37.9 (33.0-51.0) % MCV 82 (80-100) fL MCH 27 (26-34) pg MCHC 33 (32-36) gm/dL RDW Coeff of Gurjit 13.5 (11.5-15.5) % Plt Count 198 (140-440) K/uL Neut % (Auto) 65.1 (42.0-72.0) % Lymph % (Auto) 23.8 (20-44) % [place] % (Auto) 8.6 (0.0-11.0) % Eos % (Auto) 2.0 (0.0-7.0) % Baso % (Auto) 0.3 (0.0-3.0) % Neut # (Auto) 4.16 (1.7-7.0) K/uL Lymph # (Auto) 1.52 (0.90-2.90) K/uL [place] # (Auto) 0.50 (0.00-0.90) K/UL Eos # (Auto) 0.13 (0.00-0.50) K/uL Baso # (Auto) 0.02 (0.00-0.30) K/uL Abs Immat Gran (auto) 0.01 (0.00-0.30) K/uL Imm/Tot Granulo (auto) 0.2 % INR 1.11 H (0.91-1.10) APTT 27 (23-33) Seconds Sodium 134 L (135-149) mmol/L Potassium 3.7 (3.6-5.1) mmol/L Chloride 103 (96-114) mmol/L Carbon Dioxide 22 (20-32) mmol/L Anion Gap 9 (7-15) mEq/L BUN 15 (7-30) mg/dL Creatinine 0.8 (0.5-1.5) mg/dL Estimated Creat Clear 53.93 Estimated GFR 79 ml/min Glucose 116 H (60-115) mg/dL Calcium 10.4 (8.4-10.6) mg/dL Magnesium 2.1 (1.5-2.6) mg/dL Total Bilirubin 0.4 (0.1-1.5) mg/dL Direct Bilirubin 0.0 (0.0-0.5) mg/dL AST 28 (12-35) U/L ALT 25 (4-35) U/L Alkaline Phosphatase 140 (40-150) U/L Total Protein 6.8 (6.0-8.3) g/dL Albumin 3.9 (3.3-5.0) g/dL POC Troponin I 0.01 (0.01-0.04) ng/ml Discharge Plan Discharge Clinical Impression: Acute CVA (cerebrovascular accident), Acute left hemiparesis Patient Disposition: Admitted As Observation Condition: Stable
[2024-03-01 06:58] LABS: Basophils Absolute Auto 0.02 K/uL (0.00-0.30); Basophils Percent Auto 0.3 % (0.0-3.0); Eosinophils Absolute Auto 0.13 K/uL (0.00-0.50); Hematocrit 37.9 % (33.0-51.0); Hemoglobin* 12.4 gm/dL (12.0-16.0); Immature Granulocytes Abs Auto 0.01 K/uL (0.00-0.30); Immature Granulocytes Pct Auto 0.2 %; Lymphocytes Absolute Auto 1.52 K/uL (0.90-2.90); Lymphocytes Percent Auto 23.8 % (20-44); Mean Corpuscular HGB Conc 33 gm/dL (32-36); Mean Corpuscular Hemoglobin 27 pg (26-34); Mean Corpuscular Volume 82 fL (80-100); Monocytes Percent Auto 8.6 % (0.0-11.0); Neutrophils Absolute Auto 4.16 K/uL (1.7-7.0); Neutrophils Percent Auto 65.1 % (42.0-72.0); Platelet Count* 198 K/uL (140-440); RDW Coefficient of Variation % 13.5 % (11.5-15.5); Red Blood Count 4.63 m/uL (4.00-5.20); Slide Review Reflex No; White Blood Count* 6.39 K/uL (4.50-11.00)
[2024-03-01] MEDS: ONDANSETRON 2 MG/ML inj 4 MG IVP ×2 (07:00→17:35)
[2024-03-01 07:04] LABS: Troponin, Point-of-Care* 0.01 ng/ml (0.01-0.04)
[2024-03-01 07:11] LABS: Albumin* 3.9 g/dL (3.3-5.0)
[2024-03-01 07:12] LABS: Chloride* 103 mmol/L (96-114); Potassium* 3.7 mmol/L (3.6-5.1); Sodium* 134 mmol/L (135-149)
[2024-03-01 07:14] LABS: Anion Gap 9 mEq/L (7-15); Bilirubin Total* 0.4 mg/dL (0.1-1.5); Carbon Dioxide* 22 mmol/L (20-32); Creatinine* 0.8 mg/dL (0.5-1.5); Est. Creatinine Clearance* 53.93; Estimated Glomerular Filt Rate 79 ml/min
[2024-03-01 07:15] LABS: Alanine Aminotransferase* 25 U/L (4-35); Alkaline Phosphatase* 140 U/L (40-150); Aspartate Amino Transferase* 28 U/L (12-35); Blood Urea Nitrogen* 15 mg/dL (7-30); Calcium* 10.4 mg/dL (8.4-10.6); Glucose* 116 mg/dL (60-115); Magnesium* 2.1 mg/dL (1.5-2.6); Total Protein* 6.8 g/dL (6.0-8.3)
[2024-03-01 07:16] LABS: Partial Thromboplastin Time* 27 Seconds (23-33)
[2024-03-01 07:23] LABS: INR 1.11 (0.91-1.10)
[2024-03-01] MEDS: ASPIRIN 300 MG SUPP PR (08:23)
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
[2024-03-01] MEDS: ACETAMINOPHEN 325 MG TABLET 650 MG PO ×2 (17:26→22:40)
--- NOTE | 2024-03-01 18:19 | PC.NURSE ---
End of Shift: Patient pleasant and cooperative, alert and oriented. Patient vitally stable, lungs clear, BS WNL, IV SL and intact. Patient with slurred speech and left side of face droop. Left arm and left leg completely flacid. Patient did stand to side of bed with walker and 2 assist, with therapy. Patient ceiling life to chair/commode and was up to chair majority of day. Patient's has muscle spasms on and off, sometimes they are strong and often, at times absent. Zophran given once for nausea, patient does have nausea with movement at times. Tylenol given for overall comfort, spasms/right side jaw clenching causing soreness, crushed in apple sauce. Patient urinating well, 1 BM on bedpan. five level 2 thickeners used in full water jug with small straw. Patient is exhausted.
[2024-03-01] MEDS: ENOXAPARIN 40 MG/0.4 ML INJ SUBCUT (20:41)
[2024-03-01] MEDS: ATORVASTATIN 10 MG TABLET 20 MG PO (20:41)
[2024-03-01] MEDS: SODIUM CHLORIDE 0.9 % (FLUSH) 10 ML SYRINGE 5 ML IVF (20:41)
[2024-03-01] MEDS: MELATONIN 3 MG TABLET PO (22:40)
[2024-03-02] VITALS (11 sets, daily range): BP systolic 128–184; BP diastolic 66–103; PULSE 59–87; RESP 16–18; TEMP 35.8–36.8; O2SAT 92–97
--- NOTE | 2024-03-02 | CRLHL7_ITS ---
For Patients: As a result of the Century Cures Act, medical imaging exams and procedure reports are released immediately into your electronic medical record. You may view this report before your referring provider. If you have questions, please contact your health care provider. INDICATION: Left-sided hemiparesis. TECHNIQUE: Brain MRI without contrast. COMPARISON: Head CT from 03/01/2024. FINDINGS: A 16 x 28 millimeter focus of diffusion restriction within the right superior posterior putamen and periventricular newby radiata with accompanying mild FLAIR hyperintensity. It is consistent with a subacute lacunar infarct. No evidence of acute or chronic intracranial blood products. A few punctate FLAIR hyperintensities within the supratentorial white matter, typical for chronic microvascular ischemic change. No mass effect or herniation. No hydrocephalus or extra-axial collections. The pituitary gland, parasellar structures and optic chiasm are normal. Multiple chronic infarctions within the bilateral cerebellar hemispheres. All the major intracranial vascular structures demonstrate normal flow-related signal. The orbital contents are normal. No calvarial or skull base marrow replacing process. No obstructive sinus disease. No extracranial soft tissue findings. IMPRESSION: 1. A large 28 millimeter subacute lacunar infarct within the right superior putamen/periventricular newby radiata. No recent ischemia elsewhere within the brain. 2. Multiple chronic infarcts bilateral cerebellar hemispheres. Minimal chronic microvascular ischemic changes. Dictated by Marcel Escobar MD @ 03/02/2024 11:51:11 AM (Electronically Signed)
--- NOTE | 2024-03-02 04:50 | PC.NURSE ---
Shift note: Pt has been in bed throughout the shift. Left sided weakness with slurred speech. Alert and oriented. Pt was anxious and preferred nurse remained with her all the time and resorted to frequent use of call light. Pt asked for sleeping medication at 2200. informed and ordered Tab Melatonin 3mg. Bp was elevated at the start of the shift but stabilized at around 135 systolic. Pt reposition Q2H. Used Bed lewis for urine but later asked for brief because bed lewis was not comfortable for her. No deterioration in condition from baseline overnight. Pt maintaining O2>90 on RA.
[2024-03-02 06:36] LABS: Cholesterol* 149 mg/dL (90-199); HDL Cholesterol* 100 mg/dL (>=50); LDL Cholesterol Calculated 33 mg/dL (<100); Triglycerides* 82 mg/dL (40-149)
[2024-03-02 06:39] LABS: Hemoglobin A1C* 5.6 % (0-5.6)
[2024-03-02] MEDS: ASPIRIN EC 325 MG TABLET PO (09:16)
[2024-03-02] MEDS: SODIUM CHLORIDE 0.9 % (FLUSH) 10 ML SYRINGE 5 ML IVF ×2 (09:18→20:43)
[2024-03-02] MEDS: ACETAMINOPHEN 325 MG TABLET 650 MG PO ×2 (09:19→15:46)
[2024-03-02] MEDS: CLOPIDOGREL 75 MG TABLET 300 MG PO (13:42)
--- NOTE | 2024-03-02 17:16 | P.IMPN_ITS ---
Progress Note: A&P Assessment and plan (1) Acute left hemiparesis: Problem details: - sudden onset sometime overnight, acute ischemic CVA confirmed on MRI today. Status: Acute (2) Acute CVA (cerebrovascular accident): Problem details: - sudden onset of symptoms overnight while patient was sleeping, so exact time is unknown. Therefore, she is not a candidate for tPA. Appreciate stroke Neurology, Dr. Gaines's recommendations. - admitted as an inpatient for stroke - she has dysarthria and failed her bedside swallow study. She is tolerating a pureed diet and moderately thick liquids with assistance for meals without any signs of coughing or aspiration with this diet. I have ordered speech therapy to see her, but this will not be available until Sunday. - continue atorvastatin, LDL within goal - permissive hypertension complete, restart lisinopril - DVT prophylaxis with enoxaparin - monitor on telemetry, echo complete - MRI brain complete - continue PT and OT - start plavix and adjust aspirin as below Antithrombotic plan (per Dr. Pizarro, [place] stroke neuro, 03/02/24): - Conitnue home ASA 81mg daily x 3 weeks and then stop - Load with Plavix 300mg, followed by 75mg daily indefinitely Blood pressure: no premissive HTN, BP goal normotension Extended outpatient cardiac monitoring: N/A Additional workup or follow up: no Intensive statin therapy recommendations: Intensive statin therapy recommendations LIST: No, LDL is already at goal (< 70). Conitnue Home Lipitor 20mg daily Rehabilitation interventions as indicated. Sleep Apnea: NA Exercise: Daily aerobic > 30 minutes as tolerated. Prevention strategies as above. Outpatient clinic follow up: Local neurologist Status: Acute (3) Hyperlipidemia: Problem details: - LDL is <<70 - continue home statin Status: Chronic (4) Hypertension: Problem details: - resume antihypertensives Status: Chronic (5) Stage 3 chronic kidney disease: Problem details: Creatinine stable, baseline is 0.8-0.9 Status: Chronic Plan 73 y/o female with new dense left hemiparesis from ischemic stroke. Completed MRI, ECHO and neuro evaluation. PT and OT evaluated. Speech therapy consultation pending. Needs SNF placement. SW to see tomorrow for d/c planning. Subjective Time Seen by Provider: 09:16 Date Seen: 03/02/24 Interval history: Staff tells me that Marcelina had a lot of spasming overnight, which was uncomfortable and made it difficult for her to sleep. Marcelina also complains of this. We discussed that the medications we use for spasms are sedating and may make neurologic exams challenging. Exam Narrative: Exam Narrative: General: No acute distress. Awake alert oriented x3. In bed, leaning heavily to the left. Cardiovascular: Regular rate and rhythm. No murmurs, gallops, or rubs. Chest: No increased work of breathing. Clear to auscultation bilaterally. No crackles or wheezes. Abdomen: Bowel sounds present. Soft, nondistended, nontender. No hepatosplenomegaly or masses. Extremities: No edema, no cyanosis or clubbing. Neuro: Persistent left hemiparesis of lower face, arm, and leg. No word- finding difficulties, speech is slurred. Left lower facial droop is present. Light touch sensation is intact in face, body, and extremities. No nystagmus. Strength is 5/5 in right arm and leg, 0/5 left lower face, left arm and leg. Const: Vital Signs, click to edit/add: Vital Signs - 24 hr 03/01/24 20:14 03/01/24 23:00 03/01/24 23:00 Temperature 98.8 F Pulse Rate Pulse Rate [Pulse Oximeter] 101 H 99 Respiratory Rate 16 16 16 Blood Pressure [Ri ght FA] 168/101 H Pulse Oximetry 96 96 Oxygen Delivery Me thod Room Air Room Air 03/01/24 23:00 03/01/24 23:00 03/02/24 03:00 Temperature 98.4 F 97.9 F Pulse Rate 97 Pulse Rate [Pulse Oximeter] 99 82 Respiratory Rate 16 16 Blood Pressure [Ri ght FA] 154/84 H 137/88 Pulse Oximetry 90 93 Oxygen Delivery Me thod Room Air Room Air 03/02/24 08:09 03/02/24 08:09 03/02/24 08:09 Temperature 97.9 F Pulse Rate Pulse Rate [Pulse Oximeter] 71 71 Respiratory Rate 18 18 18 Blood Pressure [Ri ght FA] 128/86 Pulse Oximetry 96 96 Oxygen Delivery Me thod Room Air Room Air 03/02/24 10:24 03/02/24 11:00 03/02/24 15:03 Temperature Pulse Rate 59 L 87 Pulse Rate [Pulse Oximeter] 70 Respiratory Rate 16 Blood Pressure [Ri ght FA] 184/103 H Pulse Oximetry 94 Oxygen Delivery Me thod Room Air 03/02/24 15:07 03/02/24 15:07 03/02/24 15:07 Temperature 98.3 F Pulse Rate Pulse Rate [Pulse Oximeter] 72 72 Respiratory Rate 18 18 18 Blood Pressure [Ri ght FA] 176/92 H Pulse Oximetry 94 94 Oxygen Delivery Me thod Room Air Room Air Labs Labs: Laboratory Results - last 24 hr 03/02/24 05:32 Hemoglobin A1c 5.6 Triglycerides 82 Cholesterol 149 LDL Cholesterol, Calc 33 HDL Cholesterol 100 Ordering Physician: Khloe Snowden M.D. Date of Service: 03/02/24 Procedure(s): MR head/brain wo/w con Accession Number(s): [id number] cc: Khloe Snowden M.D.; Cinthya Tolliver D.O.~ For Patients: As a result of the Cures Act, medical imaging exams and procedure reports are released immediately into your electronic medical record. You may view this report before your referring provider. If you have questions, please contact your health care provider. INDICATION: Left-sided hemiparesis. TECHNIQUE: Brain MRI without contrast. COMPARISON: Head CT from 03/01/2024. FINDINGS: A 16 x 28 millimeter focus of diffusion restriction within the right superior posterior putamen and periventricular newby radiata with accompanying mild FLAIR hyperintensity. It is consistent with a subacute lacunar infarct. No evidence of acute or chronic intracranial blood products. A few punctate FLAIR hyperintensities within the supratentorial white matter, typical for chronic microvascular ischemic change. No mass effect or herniation. No hydrocephalus or extra-axial collections. The pituitary gland, parasellar structures and optic chiasm are normal. Multiple chronic infarctions within the bilateral cerebellar hemispheres. All the major intracranial vascular structures demonstrate normal flow-related signal. The orbital contents are normal. No calvarial or skull base marrow replacing process. No obstructive sinus disease. No extracranial soft tissue findings. IMPRESSION: 1. A large 28 millimeter subacute lacunar infarct within the right superior putamen/periventricular newby radiata. No recent ischemia elsewhere within the brain. 2. Multiple chronic infarcts bilateral cerebellar hemispheres. Minimal chronic microvascular ischemic changes. Dictated by Marcel Escobar MD @ 03/02/2024 11:51:11 AM (Electronically Signed) 03/01/24 ECHO 1. Normal left ventricular size, normal wall thickness, normal global systolic function, calculated EF of 65 %. 2. Right ventricular cavity size is normal, global systolic RV function is normal. 3. No significant valve disease detected. 4. Negative bubble study. Progress Note: Quality Stroke Symptom Onset Unknown: Yes
[2024-03-02] MEDS: MELATONIN 3 MG TABLET PO (18:20)
--- NOTE | 2024-03-02 18:36 | PC.NURSE ---
Addendum entered by Marianela Lake RN 03/02/24 18:49: Tele=NSR Original Note: End of Shift: Patient pleasant and cooperative. Patient vitally stable, lungs clear, BS WNL, IV SL and intact. Patient denies pain, but tylenol given twice per patient request for overall comfort. Patient ceiling lift/Venus steady. Patient urinating and has had 3 soft/loose BMs. Patient has only had bites of cottage cheese, pears, and apple sauce, patient has no appetite. Patient still completely flacid on left side, arm and leg. Jug of water contains 4-5 thickner, cranberry juice in 8oz clear cup contains 2 thickener packets. Patient has taken whole pills today one at a time.
[2024-03-02] MEDS: ATORVASTATIN 10 MG TABLET 20 MG PO (20:42)
[2024-03-02] MEDS: ENOXAPARIN 40 MG/0.4 ML INJ SUBCUT (20:43)
[2024-03-02] MEDS: LORazepam 0.5 MG TABLET PO (23:25)
[2024-03-03] VITALS (10 sets, daily range): BP systolic 135–169; BP diastolic 66–101; PULSE 59–109; RESP 16–18; TEMP 36.3–36.9; O2SAT 94–96
--- NOTE | 2024-03-03 06:50 | PC.NURSE ---
End of shift note [id number]: Pt alert & oriented x 4. PERRLA. Pt requires use of ceiling lift or Venus steady when transferring in or out of bed. IV to R forearm patent and SL. Pt has been afebrile and on RA throughout the shift. Pt has been incontinent of bladder with external catheter utilized overnight. Pt has been voiding frequently throughout the shift. One time dose of Lorazepam 0.5 mg administered last night per order to treat pt?s tremors/anxiety. Highest B/P of 159/91 this shift. Pt did refuse repositioning once this shift when approached and educated. She is able to help assist reposition herself in bed though also needs up to assist of 2 staff to boost up in bed. Pt on tele with NSR noted. Pt remains on thickened fluids with swallow study anticipated to be performed this afternoon.
[2024-03-03] MEDS: FLUOXETINE HCL 10 MG CAPSULE 30 MG PO (10:02)
[2024-03-03] MEDS: lisinopriL 20 MG TABLET 30 MG PO (10:03)
[2024-03-03] MEDS: ASPIRIN 81 MG TABLET EC PO (10:03)
[2024-03-03] MEDS: SODIUM CHLORIDE 0.9 % (FLUSH) 10 ML SYRINGE 5 ML IVF ×3 (10:04→19:53)
[2024-03-03] MEDS: CLOPIDOGREL 75 MG TABLET PO (10:04)
--- NOTE | 2024-03-03 11:29 | NUTR.NU ---
RDN with diet education related to Heart Healthy diet order. Patient admitted with left hemiparesis, suspected CVA. Past medical history significant for GERD, Hyperlipidemia, Vitamin D deficiency, Chronic kidney disease stage 3, and osteopenia. Current weight 271 lb 1.6 oz, suspect this is an error as patient's weight has been 240s since admit. Suspect weight was meant to be entered as 241 lb 1.6 oz. RDN spoke to nursing staff whom also suspect weight was entered in error. Patient has chewing and swallowing difficulties. Speech Evaluation to be done today. Current diet until further recommendations by Speech Therapist is Heart Healthy with IDDSI Lvl 4 pureed texture and IDDSI Lvl 3 moderately thick liquids. Intakes since admit have been minimal. Patient had bites of cottage cheese and peaches yesterday for lunch. RDN visited with patient whom reports her appetite is low which is not normal. This started when left hemiparesis began. Patient declined weight loss at this time. Patient was a little drowsy during visit, however (Justin, designated caregiver) and son were in the room. Patient asked for me to focus my conversation on Justin and son, and that she would listen. I offered diet education related to heart healthy diet to Justin and son, however they declined at this time. They did accept educational materials. No questions or concerns at this time. No nutrition interventions at this time due to waiting for Speech Eval and recommendations. RDN will continue to monitor and follow-up prn.
--- NOTE | 2024-03-03 14:59 | PC.SOCIAL ---
Addendum entered and electronically signed by SATISH Salazar 03/03/24 15:47: Discharge planning: A check with pt's insurance confirmed that [facility] is out of network and [facility] in [place] is not ideal due to location. Pt's family says [facility] is their main preference. Social work to follow-up as needed. Original Note: Discharge planning: second worker met with pt and her , Mason, to discuss discharge planning today. Pt is being recommended for Acute Rehab. second worker talked to pt and her about the facilities that have Acute Rehab and pt and her would like this worker to send a referral to [facility] at either [facility] in [place] or [facility] in [place]. second worker faxed a referral for the pt to these facilities at fax #[phone](same fax number for both). second worker is awaiting a decision on admit. Pt will have a speech evaluation done this afternoon. Social work to follow-up as needed.
--- NOTE | 2024-03-03 15:19 | PM.IMPN1 ---
Progress Note: A&P Assessment and plan (1) Acute left hemiparesis: Problem details: - sudden onset sometime overnight, acute ischemic CVA confirmed on MRI. Status: Acute (2) Acute CVA (cerebrovascular accident): Problem details: - sudden onset of symptoms overnight while patient was sleeping, so exact time is unknown. Therefore, she is not a candidate for tPA. Appreciate stroke Neurology, Dr. Gaines's recommendations. - admitted as an inpatient for stroke - she has dysarthria and failed her bedside swallow study. She is tolerating a pureed diet and moderately thick liquids with assistance for meals without any signs of coughing or aspiration with this diet. I have ordered speech therapy to see her, but this will not be available until Sunday. - continue atorvastatin, LDL within goal - permissive hypertension complete, restart lisinopril - DVT prophylaxis with enoxaparin - monitor on telemetry, echo complete - MRI brain complete - continue PT and OT - start plavix and adjust aspirin as below Antithrombotic plan (per Dr. Pizarro, [place] stroke neuro, 03/02/24): - Conitnue home ASA 81mg daily x 3 weeks and then stop - Load with Plavix 300mg, followed by 75mg daily indefinitely Blood pressure: no premissive HTN, BP goal normotension Extended outpatient cardiac monitoring: N/A Additional workup or follow up: no Intensive statin therapy recommendations: Intensive statin therapy recommendations LIST: No, LDL is already at goal (< 70). Conitnue Home Lipitor 20mg daily Rehabilitation interventions as indicated. Sleep Apnea: NA Exercise: Daily aerobic > 30 minutes as tolerated. Prevention strategies as above. Outpatient clinic follow up: Local neurologist Status: Acute (3) Hyperlipidemia: Problem details: - LDL is <<70 - continue home statin, no change in dose Status: Chronic (4) Hypertension: Problem details: - resumed antihypertensives Status: Chronic (5) Stage 3 chronic kidney disease: Problem details: Creatinine stable, baseline is 0.8-0.9 Status: Chronic Plan 73 y/o female with new dense left hemiparesis from ischemic stroke. Completed MRI, ECHO and neuro evaluation. PT and OT evaluated. Speech therapy consultation pending, likely to happen today. May benefit from acute rehab, patient and family agreeable. SW involved to help with d/c planning. Subjective Time Seen by Provider: 10:00 Date Seen: 03/03/24 Interval history: Marcelina had a BM today. She remains very sleepy and c/o spasming of LLE. Spasming is a little better than Sunday into Sunday. Her is there with her and we discussed the recommendations from neurology and possible acute rehab. Exam Narrative: Exam Narrative: General: No acute distress. Sleeping, arousable, oriented. Cardiovascular: Regular rate and rhythm. No murmurs, gallops, or rubs. Chest: No increased work of breathing. Clear to auscultation bilaterally. No crackles or wheezes. Abdomen: Bowel sounds present. Soft, nondistended, nontender. No hepatosplenomegaly or masses. Extremities: No edema, no cyanosis or clubbing. Neuro: Persistent dense left hemiparesis of lower face, arm, and leg. No word-finding difficulties, speech is slurred. Const: Vital Signs, click to edit/add: Vital Signs - 24 hr 03/02/24 19:24 03/02/24 22:32 03/02/24 23:00 Temperature 97.7 F Pulse Rate 66 Pulse Rate [Pulse Oximeter] 70 77 Respiratory Rate 18 18 Blood Pressure [Ri ght FA] 146/66 H Pulse Oximetry 92 Oxygen Delivery Me thod Room Air 03/02/24 23:28 03/02/24 23:29 03/03/24 03:46 Temperature 96.4 F L 97.8 F Pulse Rate Pulse Rate [Pulse Oximeter] 77 60 Respiratory Rate 18 18 16 Blood Pressure [Ri ght FA] 159/85 H 159/91 H Pulse Oximetry 97 97 96 Oxygen Delivery Me thod Room Air Room Air Room Air 03/03/24 07:00 03/03/24 07:00 03/03/24 07:00 Temperature 97.8 F Pulse Rate Pulse Rate [Pulse Oximeter] 59 L 59 L Respiratory Rate 18 18 18 Blood Pressure [Ri ght FA] 149/74 H Pulse Oximetry 96 96 Oxygen Delivery Me thod Room Air Room Air 03/03/24 07:40 03/03/24 10:00 03/03/24 12:43 Temperature 98.5 F Pulse Rate 74 109 H Pulse Rate [Pulse Oximeter] 78 Respiratory Rate 18 Blood Pressure [Ri ght FA] 145/85 H Pulse Oximetry 94 Oxygen Delivery Me thod Room Air 03/03/24 15:00 03/03/24 15:12 Temperature 97.7 F Pulse Rate Pulse Rate [Pulse Oximeter] 74 Respiratory Rate 18 18 Blood Pressure [Ri ght FA] 169/99 H Pulse Oximetry 94 94 Oxygen Delivery Me thod Room Air Room Air Progress Note: Quality Stroke Symptom Onset Unknown: Yes
[2024-03-03] MEDS: ACETAMINOPHEN 325 MG TABLET 650 MG PO ×2 (17:14→23:24)
[2024-03-03] MEDS: ONDANSETRON 2 MG/ML inj 4 MG IVP (17:14)
--- NOTE | 2024-03-03 18:53 | PC.NURSE ---
Pt pleasant, alert, oriented and vitally stable. Pt up to chair throughout shift and tolerates well. Pt incontinent of bladder, pure wick in place per pt request and bedside commode in use. Pt has left sided weakness, left arm and leg flaccid, along with left side facial droop. Pt moves via 2-3 a radha steady, tolerates okay.
[2024-03-03] MEDS: MELATONIN 3 MG TABLET PO (19:48)
[2024-03-03] MEDS: ATORVASTATIN 10 MG TABLET 20 MG PO (19:48)
[2024-03-03] MEDS: ENOXAPARIN 40 MG/0.4 ML INJ SUBCUT (19:50)
[2024-03-03] MEDS: BACLOFEN 10 MG TABLET 5 MG PO (20:50)
[2024-03-04 04:20] VITALS: BP 120/62; PULSE 69; RESP 16; TEMP 36.2; O2SAT 96
--- NOTE | 2024-03-04 06:30 | PC.NURSE ---
End of shift [id number]: Pt has been A&O, afebrile and VSS overnight. Neuro exam goes unchanged. Persistent hemiparesis of left side of lower face, left arm and left leg. Speech is slurred but coherent and appropriate. Pt has been continent/incontinent of urine. Purewick applied overnight. Pt got little sleep overnight, c/o overall restlessness and discomfort. PRN Tylenol given @ 2325 and pt was started on PO Baclofen BID for muscle spasms. PIV in right AC was tender & hard at the insertion site so it was removed. MD martellay?ed for no IV access since we failed x3 for new access. TELE read NSR with BBB overnight. She maintained O2 sats on RA. Pt tolerated PO meds one at a time with mildly thickened water. Awaiting placement for acute stroke rehab. ?
[2024-03-04] MEDS: ASPIRIN 81 MG TABLET EC PO (09:12)
[2024-03-04] MEDS: ACETAMINOPHEN 325 MG TABLET 650 MG PO ×2 (09:12→16:12)
[2024-03-04] MEDS: BACLOFEN 10 MG TABLET 5 MG PO ×2 (09:13→19:10)
[2024-03-04] MEDS: CLOPIDOGREL 75 MG TABLET PO (09:13)
[2024-03-04] MEDS: lisinopriL 20 MG TABLET 30 MG PO (09:13)
[2024-03-04] MEDS: FLUOXETINE HCL 10 MG CAPSULE 30 MG PO (09:20)
[2024-03-04 09:28] VITALS: BP 113/78; PULSE 91; RESP 16; TEMP 36.8; O2SAT 92
--- NOTE | 2024-03-04 09:36 | PC.NURSE ---
External catheter was not intact. Removed at this time. Will replace when back in bed. Incontinence pad in place.
[2024-03-04 10:02] VITALS: BMI 35.6
--- NOTE | 2024-03-04 12:26 | PC.SOCIAL ---
Addendum entered and electronically signed by SATISH Salazar 03/04/24 16:05: Discharge planning: Pt was accepted to [facility] at [facility] for this . Pt's family has accepted the bed and Flower at [facility] was notified. Social work to follow-up as needed. Original Note: Discharge planning: seafood process worker heard back from Flower at [facility] #[phone] this morning who shared that they are evaluating the pt for acute rehab; however, she looked into pt's [employer] insurance and found out that the insurance will not cover acute rehab and transitional care/short-term rehab(they will only cover one or the other), meaning that if the pt needs short-term rehab at a penitentiary facility after her two to three week acute rehab stay at [facility] her insurance would not cover the short-term rehab. Flower wanted this worker to talk to the family about this and make sure the family would be able to take the pt home with 24 hour supervision/care after discharge from acute rehab, since insurance would not cover a short-term rehab stay, if it was needed/recommended. seafood process worker talked with the pt, her , Mason, and their daughter, Fior, and they decided that they would still like to pursue acute rehab and are open to paying privately for a short-term rehab stay at a penitentiary facility after the pt's acute rehab stay, if needed. seafood process worker explained that short-term rehab at a penitentiary facility can cost up to $600.00 or more a day and most facilities usually like a $10,000.00 down payment at admission and the pt's stated that they could afford that. seafood process worker updated Flower at [facility] with this information and sent her updated progress notes on the pt(PT/OT, speech and hospitalist progress note). Flower did say that paper referrals take them longer to review and approve, but she was hoping to get back to this worker today, if not tomorrow morning. Social work to follow-up as needed.
[2024-03-04 13:02] VITALS: BP 132/77; PULSE 75; RESP 16; TEMP 36.4; O2SAT 94
--- NOTE | 2024-03-04 14:42 | P.IMPN_ITS ---
Progress Note: A&P Assessment and plan (1) Acute left hemiparesis: Problem details: - sudden onset sometime overnight, acute ischemic CVA confirmed on MRI. Status: Acute (2) Acute CVA (cerebrovascular accident): Problem details: - sudden onset of symptoms overnight while patient was sleeping, so exact time is unknown. Therefore, she is not a candidate for tPA. Appreciate stroke Neurology, Dr. Gaines's recommendations. - admitted as an inpatient for stroke - she has dysarthria and failed her bedside swallow study. She is tolerating a pureed diet and moderately thick liquids with assistance for meals without any signs of coughing or aspiration with this diet. I have ordered speech therapy to see her, but this will not be available until Sunday. - continue atorvastatin, LDL within goal - permissive hypertension complete, restart lisinopril - DVT prophylaxis with enoxaparin - monitor on telemetry, echo complete - MRI brain complete - continue PT and OT - start plavix and adjust aspirin as below Antithrombotic plan (per Dr. Pizarro, [place] stroke neuro, 03/02/24): - Conitnue home ASA 81mg daily x 3 weeks and then stop - Load with Plavix 300mg, followed by 75mg daily indefinitely Blood pressure: no premissive HTN, BP goal normotension Extended outpatient cardiac monitoring: N/A Additional workup or follow up: no Intensive statin therapy recommendations: Intensive statin therapy recommendations LIST: No, LDL is already at goal (< 70). Conitnue Home Lipitor 20mg daily Rehabilitation interventions as indicated. Sleep Apnea: NA Exercise: Daily aerobic > 30 minutes as tolerated. Prevention strategies as above. Outpatient clinic follow up: Local neurologist Status: Acute (3) Hyperlipidemia: Problem details: - LDL is <<70 - continue home statin, no change in dose Status: Chronic (4) Hypertension: Problem details: - resumed antihypertensives - BP has improved, follow Status: Chronic (5) Stage 3 chronic kidney disease: Problem details: Creatinine stable, baseline is 0.8-0.9 Status: Chronic Plan 73 y/o female with new dense left hemiparesis from ischemic stroke. Completed MRI, ECHO and neuro evaluation. PT and OT evaluated. Speech therapy consultation pending, likely to happen today. May benefit from acute rehab, patient and family agreeable. SW involved to help with d/c planning. No bed available at acute rehab yet. Subjective Date Seen: 03/04/24 Interval history: Marcelina is a bit better today. Her and daughter, Fior, are at her bedside. They note that she is a little more alert and seems to be getting her personality back a bit. She says she is tired. They all agree the baclofen is helping with spasms. Exam Narrative: Exam Narrative: General: No acute distress. Sleeping, arousable, more alert and interactive today, smiled, oriented. Cardiovascular: Regular rate and rhythm. No murmurs, gallops, or rubs. Chest: No increased work of breathing. Clear to auscultation bilaterally. No crackles or wheezes. Abdomen: Bowel sounds present. Soft, nondistended, nontender. No hepatosplenomegaly or masses. Extremities: No edema, no cyanosis or clubbing. Neuro: Persistent dense left hemiparesis of lower face, arm, and leg. No word- finding difficulties, speech is slurred. Const: Vital Signs, click to edit/add: Vital Signs - 24 hr 03/03/24 15:00 03/03/24 15:00 03/03/24 15:12 Temperature 97.7 F Pulse Rate Pulse Rate [Pulse Oximeter] 74 74 Respiratory Rate 18 18 18 Blood Pressure [Ri ght FA] 169/99 H Pulse Oximetry 94 94 Oxygen Delivery Me thod Room Air Room Air 03/03/24 17:38 03/03/24 19:00 03/03/24 23:00 Temperature 97.6 F Pulse Rate 94 87 Pulse Rate [Pulse Oximeter] 91 Respiratory Rate 16 Blood Pressure [Ri ght FA] 162/101 H Pulse Oximetry [facility] 03/03/24 23:00 03/03/24 23:00 03/03/24 23:00 Temperature 97.3 F L Pulse Rate Pulse Rate [Pulse Oximeter] 86 86 Respiratory Rate 16 16 16 Blood Pressure [Ri ght FA] 135/66 Pulse Oximetry 96 96 [facility] 03/04/24 04:20 03/04/24 09:28 03/04/24 09:28 Temperature 97.1 F L 98.3 F Pulse Rate Pulse Rate [Pulse Oximeter] 69 91 Respiratory Rate 16 16 Blood Pressure [Ri ght FA] 120/62 113/78 Pulse Oximetry 96 92 92 Oxygen Delivery Me thod Room Air Room Air Room Air 03/04/24 13:02 Temperature 97.6 F Pulse Rate Pulse Rate [Pulse Oximeter] 75 Respiratory Rate 16 Blood Pressure [Ri ght FA] 132/77 Pulse Oximetry 94 Oxygen Delivery Me thod Room Air Progress Note: Quality Stroke Symptom Onset Unknown: Yes
[2024-03-04 15:00] VITALS: BP 154/75; PULSE 84; RESP 18; TEMP 36.9; O2SAT 96
[2024-03-04 19:00] VITALS: BP 164/83; PULSE 91; RESP 16; TEMP 36.9; O2SAT 93
[2024-03-04] MEDS: ENOXAPARIN 40 MG/0.4 ML INJ SUBCUT (19:10)
[2024-03-04] MEDS: MELATONIN 3 MG TABLET PO (19:10)
[2024-03-04] MEDS: ATORVASTATIN 10 MG TABLET 20 MG PO (19:11)
--- NOTE | 2024-03-04 23:30 | PC.NURSE ---
End of shift [id number]: Pt has been A&O, afebrile and VSS throughout the afternoon. No c/o pain but c/o overall discomfort & restlessness. PRN Tylenol given @ 1610 & pt requested HS meds early for Baclofen. She transfers via [facility]. Continent/incontinent of urine with external catheter in place. No IV access. Accepted for admission at [facility] on .
[2024-03-04 23:45] VITALS: BP 137/74; PULSE 85; RESP 16; TEMP 36.1; O2SAT 96
[2024-03-05] MEDS: ACETAMINOPHEN 325 MG TABLET 650 MG PO ×2 (01:13→20:12)
[2024-03-05 04:30] VITALS: RESP 14
--- NOTE | 2024-03-05 05:44 | PC.NURSE ---
Pt alert and oriented. Pt had complaints of a sore neck; see EMAR for intervention. Pt?s VSS. Pt slept on and off throughout the night and had difficulties get comfortable.
[2024-03-05 07:00] VITALS: BP 146/66; PULSE 83; RESP 16; TEMP 36.8; O2SAT 95
[2024-03-05] MEDS: lisinopriL 20 MG TABLET 30 MG PO (09:05)
[2024-03-05] MEDS: BACLOFEN 10 MG TABLET 5 MG PO ×2 (09:05→20:10)
[2024-03-05] MEDS: CLOPIDOGREL 75 MG TABLET PO (09:05)
[2024-03-05] MEDS: FLUOXETINE HCL 10 MG CAPSULE 30 MG PO (09:05)
[2024-03-05] MEDS: ASPIRIN 81 MG TABLET EC PO (09:05)
[2024-03-05] MEDS: SODIUM CHLORIDE 0.9 % (FLUSH) 10 ML SYRINGE 5 ML IVF ×2 (09:06→20:13)
--- NOTE | 2024-03-05 09:33 | P.DS_ITS ---
Transfer Discharge Sum: Prov Provider Time Seen by Provider: 09:23 Date Seen: 03/05/24 Date of admission: 03/01/24 10:39 Primary care physician: Cinthya Tolliver DO Consults: 03/01/24 10:39 Consult to Occupational Therapy [CONS] Routine Comment: Reason(s) for OT Consult:: Evaluate and Treat Any Restrictions?:: No Restrictions Consult to Physical Therapy [CONS] Routine Comment: Reason(s) for PT Consult:: Evaluate and Treat Any Restrictions?:: No Restrictions Consult to Fur Polisher [CONS] Routine Comment: Reason for Consult:: Possible SNF placement Consult to Speech Therapy [CONS] Routine Comment: Reason(s) for Speech Consult:: Speech/Swallowing Eval Anticipated date of transfer: 03/06/24 Receiving physician/facility: [facility] rehab DS: Diagnosis Discharge Diagnosis (1) Acute left hemiparesis: Status: Acute Problem details: - sudden onset sometime overnight, acute ischemic CVA confirmed on MRI. (2) Acute CVA (cerebrovascular accident): Status: Acute Problem details: - sudden onset of symptoms overnight while patient was sleeping, so exact time is unknown. Therefore, she is not a candidate for tPA. Appreciate stroke Neurology, Dr. Gaines's recommendations. - admitted as an inpatient for stroke - she has dysarthria and failed her bedside swallow study. She is tolerating a pureed diet and moderately thick liquids with assistance for meals without any signs of coughing or aspiration with this diet. I have ordered speech therapy to see her, but this will not be available until Sunday. - continue atorvastatin, LDL within goal - permissive hypertension complete, restart lisinopril - DVT prophylaxis with enoxaparin - monitor on telemetry, echo complete - MRI brain complete - continue PT and OT - start plavix and adjust aspirin as below Antithrombotic plan (per Dr. Pizarro, [place] stroke neuro, 03/02/24): - Conitnue home ASA 81mg daily x 3 weeks and then stop - Load with Plavix 300mg, followed by 75mg daily indefinitely Blood pressure: no premissive HTN, BP goal normotension Extended outpatient cardiac monitoring: N/A Additional workup or follow up: no Intensive statin therapy recommendations: Intensive statin therapy recommendations LIST: No, LDL is already at goal (< 70). Conitnue Home Lipitor 20mg daily Rehabilitation interventions as indicated. Sleep Apnea: NA Exercise: Daily aerobic > 30 minutes as tolerated. Prevention strategies as above. Outpatient clinic follow up: Local neurologist (3) Hyperlipidemia: Status: Chronic Problem details: - LDL is <<70 - continue home statin, no change in dose (4) Hypertension: Status: Chronic Problem details: - resumed antihypertensives after period of permissive hypertension - BP control improving (5) GERD (gastroesophageal reflux disease): Status: Chronic Problem details: - EGD 03/2019 reflux, esophageal erosion, hiatal hernia - continue home PPI (6) Stage 3 chronic kidney disease: Status: Chronic Problem details: Creatinine stable, baseline is 0.8-0.9 Transfer Discharge Sum: Med Medications Active and Home Medications: Home Medications aspirin 81 mg tablet,delayed release (Adult Aspirin Regimen) 81 mg PO DAILY 10/02/22 [History Confirmed 03/01/24] atorvastatin 20 mg tablet 20 mg PO HS 10/02/22 [History Confirmed 03/01/24] fluoxetine 10 mg capsule 30 mg PO DAILY 10/02/22 [History Confirmed 03/01/24] lisinopril 30 mg tablet 30 mg PO DAILY 10/02/22 [History Confirmed 03/01/24] multivit with min-folic acid-lutein 400 mcg-250 mcg chewable tablet (Centrum Silver) 1 tab PO DAILY 10/02/22 [History Confirmed 03/01/24] vibegron 75 mg tablet (Gemtesa) 75 mg PO DAILY 10/02/22 [History Confirmed 03/01/24] omeprazole 20 mg capsule,delayed release 20 mg PO DAILY 10/17/23 [History Confirmed 03/01/24] estradiol 0.01% (0.1 mg/gram) vaginal cream 1 g vaginal 2XW 03/01/24 [History Confirmed 03/01/24] glucosamine-chondroitin 500 mg-400 mg tablet (Cosamin DS) 1 tab PO DAILY 03/01/24 [History Confirmed 03/01/24] miconazole nitrate 2 % topical cream 1 applic topical BID 03/01/24 [History Confirmed 03/01/24] Active Medications Acetaminophen (Acetaminophen 325 Mg Tablet) 650 mg PO Q6H PRN PRN Reason: As needed for fever, headache, or minor pain Last Admin: 03/05/24 01:13 Dose: 650 mg Aspirin (Aspirin 81 Mg Tablet Ec) 81 mg PO DAILY [facility] Last Admin: 03/05/24 09:05 Dose: 81 mg Atorvastatin Calcium (Atorvastatin 10 Mg Tablet) 20 mg PO HS [facility] Last Admin: 03/04/24 19:11 Dose: 20 mg Baclofen (Baclofen 10 Mg Tablet) 5 mg PO BID [facility] Last Admin: 03/05/24 09:05 Dose: 5 mg Clopidogrel Bisulfate (Clopidogrel 75 Mg Tablet) 75 mg PO DAILY [facility] Last Admin: 03/05/24 09:05 Dose: 75 mg Docusate Sodium (Docusate Sodium 100 Mg Capsule) 100 mg PO BID PRN PRN Reason: Constipation Enoxaparin Sodium (Enoxaparin 40 Mg/0.4 Ml Inj) 40 mg SUBCUT HS [facility] Last Admin: 03/04/24 19:10 Dose: 40 mg Fluoxetine HCl (Fluoxetine Hcl 10 Mg Capsule) 30 mg PO DAILY [facility] Last Admin: 03/05/24 09:05 Dose: 30 mg Lisinopril (Lisinopril 20 Mg Tablet) 30 mg PO DAILY [facility] Last Admin: 03/05/24 09:05 Dose: 30 mg Melatonin (Melatonin 3 Mg Tablet) 3 mg PO HS [facility] Last Admin: 03/04/24 19:10 Dose: 3 mg Ondansetron HCl (Ondansetron 2 Mg/Ml Inj) 4 mg IVP Q4H PRN PRN Reason: Nausea Last Admin: 03/03/24 17:14 Dose: 4 mg Sodium Chloride (Sodium Chloride 0.9 % (Flush) 10 Ml Syringe) 5 ml IVF BID [facility] Last Admin: 03/05/24 09:06 Dose: 5 ml Transfer Discharge Sum: Hosp Hospital Course Hospital course: Marcelina Zuñiga is a 73 year old female with a h/o HTN, dyslipidemia, stage 3 chronic kidney disease, depression, osteopenia overactive bladder, and recurrent UTI who went to bed around 11 30 last night in her usual state of health and then woke up early this morning around 4 or 5:00 a.m. with an itchy back and needing to use the bathroom. As she was trying to scratch her back, she noted that her left arm did not feel like her own. She woke up her and they had trouble getting her out of bed because her left leg was not working. She was brought to the emergency department by EMS. She denied headache, but stated that she was very sleepy and kept dozing off during our conversation. Her and adult children arrived later in the day and she was still sleepy and now had a headache and some spasming of her left leg. She told me that she was in [place] 2 weeks ago when she was admitted to the hospital there overnight for dizziness and epistaxis. She had a stroke workup and ultimately was diagnosed with altitude sickness. She was discharged home in improved condition from that hospital stay. She saw her primary care provider last week for another episode of epistaxis. Marcelina had persistent dense left hemiparesis of face, arm and leg. She underwent head and neck imaging as below, confirming ischemic stroke. She also had an ECHO and was seen by stroke tele-neuro, Dr. Pizarro, who gave recommendations. These were implemented. PT, OT and speech therapy evaluated and began therapy. She had onset of spasms and clonus for which she was started on baclofen with some improvement. She is in stable condition for transfer to acute rehab. Please see diagnoses above for more details. Time Spent with Patient Time attestation: Total time spent providing and/or coordinating transfer services: Exam Narrative: Exam Narrative: General: No acute distress. Awake, alert, oriented x 3. Cardiovascular: Regular rate and rhythm. No murmurs, gallops, or rubs. Chest: No increased work of breathing. Clear to auscultation bilaterally. No crackles or wheezes. Abdomen: Bowel sounds present. Soft, nondistended, nontender. No hepatosplenomegaly or masses. Extremities: No edema, no cyanosis or clubbing. Neuro: Persistent dense left hemiparesis of lower face, arm, and leg. No word- finding difficulties, speech is slurred. Neuro exam unchanged. Const: Vital Signs, click to edit/add: Vital Signs - 24 hr 03/04/24 13:02 03/04/24 15:00 03/04/24 15:00 Temperature 97.6 F Pulse Rate [Pulse Oximeter] 75 84 Respiratory Rate 16 18 18 Blood Pressure [Ri ght FA] 132/77 Pulse Oximetry 94 96 Oxygen Delivery Me thod Room Air Room Air 03/04/24 15:00 03/04/24 19:00 03/04/24 23:45 Temperature 98.4 F 98.5 F 97.0 F L Pulse Rate [Pulse Oximeter] 84 91 85 Respiratory Rate 18 16 16 Blood Pressure [Ri ght FA] 154/75 H 164/83 H 137/74 Pulse Oximetry 96 93 96 Oxygen Delivery Me thod Room Air Room Air Room Air 03/04/24 23:45 03/05/24 04:30 03/05/24 07:00 Temperature Pulse Rate [Pulse Oximeter] 83 Respiratory Rate 16 14 16 Blood Pressure [Ri ght FA] Pulse Oximetry 96 Oxygen Delivery Me thod Room Air 03/05/24 07:00 03/05/24 07:00 Temperature 98.3 F Pulse Rate [Pulse Oximeter] 83 Respiratory Rate 16 16 Blood Pressure [Ri ght FA] 146/66 H Pulse Oximetry 95 95 Oxygen Delivery Me thod Room Air Room Air Transfer Discharge Sum: Data Data Completed and Pending Completed studies during hospitalization: 03/01/2024 EKG: Wide QRS rhythm with fusion complexes. 114 beats per minute. Right bundle-branch block. 03/01/2024 echocardiogram: Normal left ventricular size, normal wall thickness, normal global systolic function, calculated EF of 65%. Right ventricular cavity size is normal, global systolic RV function is normal. No significant valve disease detected. Negative bubble study. Ordering Physician: Khloe Snowden M.D. Date of Service: 03/01/24 Procedure(s): CT head/brain wo con Accession Number(s): [id number] cc: Khloe Snowden M.D.; Cinthya Tolliver D.O.~ Patient: MARCELINA ZUÑIGA Facility: [facility] Site . Site : 1950 Study: CT-Head WO STROKE CODE-03/01/2024 6:59:25 AM Ordering Physician: Isi Ledbetter Final Report: INDICATION: Left hemiparesis. TECHNIQUE: CT head without contrast. COMPARISON: None. FINDINGS: CSF spaces: Within normal limits for age. Brain parenchyma and extra-axial spaces: The kelly-white differentiation is normal. No sign of acute ischemia. No sign of mass, hemorrhage, or midline shift. No extra-axial fluid collection. Skull base and calvarium: The visualized paranasal sinuses and mastoid air cells demonstrate no acute or significant findings. The visualized orbits are grossly unremarkable. No skull fractures. IMPRESSION: Unremarkable noncontrast head CT. No sign of acute ischemia or intracranial hemorrhage. Please note that all CT scans at this facility use dose modulation, iterative reconstruction, and/or weight-based dosing when appropriate to reduce radiation dose to as low as reasonably achievable. Dictated by Neftali Weber MD @ 03/01/2024 7:08:34 AM ----- ADDENDUM ----- Results discussed by phone with Dr. Hall at 0715 hours. Dictated by Neftali Weber MD @ Mar 01 2024 7:16AM Signed by: Neftali Weber MD @03/01/2024 7:08:34 AM (Electronic Signature) Dictated By: Neftali Weber M.D. Signed By: 03/03/24717 DD/ 5 TD/TT: 03/03/24717 Credit Correspondence Clerk: Ordering Physician: Khloe Snowden M.D. Date of Service: 03/01/24 Procedure(s): CT angio head Accession Number(s): [id number] cc: Khloe Snowden M.D.; Cinthya Tolliver D.O.~ For Patients: As a result of the Cures Act, medical imaging exams and procedure reports are released immediately into your electronic medical record. You may view this report before your referring provider. If you have questions, please contact your health care provider. DATE: 03/01/2024 CLINICAL HISTORY: Patient with focal neurological deficits. TECHNIQUE: Standard helical CT image acquisition through the intracranial circulation following intravenous administration of contrast material with bolus tracking. 2D and 3D MIP images for post-processing were performed and interpreted on an independent workstation and 3D images were permanently archived. COMPARISON: CT same day. FINDINGS: There is no cerebral aneurysm or large vessel occlusion. The right internal carotid artery is normal. The right middle cerebral artery and its branches are normal. The right anterior cerebral artery and its branches are normal. The left internal carotid artery is normal. The left middle cerebral artery and its branches are normal. The left anterior cerebral artery and its branches are normal. The anterior communicating artery is well visualized and appears normal. The right vertebral artery and PICA are normal. The left vertebral artery and PICA are normal. The left vertebral artery is dominant. The basilar artery is patent and appears normal. The right posterior cerebral artery is normal. The left posterior cerebral artery is normal. The visualized venous structures are patent. IMPRESSION: Patent proximal intracranial vasculature without intracranial aneurysms. Please note that all CT scans at this facility use dose modulation, iterative reconstruction, and/or weight-based dosing when appropriate to reduce radiation dose to as low as reasonably achievable. Dictated by Marcella Felipe MD @ 03/01/2024 10:26:46 AM (Electronically Signed) Ordering Physician: Khloe Snowden M.D. Date of Service: 03/01/24 Procedure(s): CT angio neck Accession Number(s): [id number] cc: Khloe Snowden M.D.; Cinthya Tolliver D.O.~ For Patients: As a result of the Cures Act, medical imaging exams and procedure reports are released immediately into your electronic medical record. You may view this report before your referring provider. If you have questions, please contact your health care provider. DATE: 03/01/2024 CLINICAL HISTORY: Patient with focal neurological deficits. TECHNIQUE: Standard helical CT image acquisition of the neck up to the skull base after bolus intravenous contrast enhancement. 2D and 3D MIP images for post-processing were performed and interpreted on an independent workstation and 3D images were permanently archived. COMPARISON: CT same day. FINDINGS: The origins of the great vessels from the aortic arch are patent. The origin of the right vertebral artery is patent. The origin of the left vertebral artery is patent. The common carotid arteries are patent. There is plaque without stenosis at the origin of the right internal carotid artery by NASCET criteria. There is a mild (<50%) stenosis at the origin of the left internal carotid artery by NASCET criteria. This is caused by non-calcified plaque with a <2mm residual lumen. The rest of the cervical segments of the internal carotid arteries are patent up to the skull base. The vertebral arteries are codominant. The cervical segments of the vertebral arteries are patent up to the skull base. The visualized lung apices are unremarkable. The thyroid gland is unremarkable. The soft tissues of the neck are unremarkable. There are degenerative changes in the cervical spine. IMPRESSION: Mild (<50%) stenosis at the origin of the left internal carotid artery by NASCET criteria. This is caused by non-calcified plaque with a <2mm residual lumen. Please note that all CT scans at this facility use dose modulation, iterative reconstruction, and/or weight-based dosing when appropriate to reduce radiation dose to as low as reasonably achievable. Dictated by Marcella Felipe MD @ 03/01/2024 10:24:26 AM (Electronically Signed) Ordering Physician: Khloe Snowden M.D. Date of Service: 03/02/24 Procedure(s): MR head/brain wo/w con Accession Number(s): [id number] cc: Khloe Snowden M.D.; Cinthya Tolliver D.O.~ For Patients: As a result of the Cures Act, medical imaging exams and procedure reports are released immediately into your electronic medical record. You may view this report before your referring provider. If you have questions, please contact your health care provider. INDICATION: Left-sided hemiparesis. TECHNIQUE: Brain MRI without contrast. COMPARISON: Head CT from 03/01/2024. FINDINGS: A 16 x 28 millimeter focus of diffusion restriction within the right superior posterior putamen and periventricular newby radiata with accompanying mild FLAIR hyperintensity. It is consistent with a subacute lacunar infarct. No evidence of acute or chronic intracranial blood products. A few punctate FLAIR hyperintensities within the supratentorial white matter, typical for chronic microvascular ischemic change. No mass effect or herniation. No hydrocephalus or extra-axial collections. The pituitary gland, parasellar structures and optic chiasm are normal. Multiple chronic infarctions within the bilateral cerebellar hemispheres. All the major intracranial vascular structures demonstrate normal flow-related signal. The orbital contents are normal. No calvarial or skull base marrow replacing process. No obstructive sinus disease. No extracranial soft tissue findings. IMPRESSION: 1. A large 28 millimeter subacute lacunar infarct within the right superior putamen/periventricular newby radiata. No recent ischemia elsewhere within the brain. 2. Multiple chronic infarcts bilateral cerebellar hemispheres. Minimal chronic microvascular ischemic changes. Dictated by Marcel Escobar MD @ 03/02/2024 11:51:11 AM (Electronically Signed) Quality Measure Queries Stroke Reason for No Antithrombin at DC: Treatment not indicated Contraindication Not Initiating IV-Tpa: Treatment not indicated (Unknown time of onset) Symptom Onset Unknown: Yes Discharge Plan Discharge Disposition: [facility] Discharge Location: [facility] Date of Admission: 03/01/24 10:39 Primary Care Provider: Cinthya Tolliver Condition: Stable Discharge Orders: Transfer of Care to Other Hospital (ORDER); Ordered 03/06/24 Ordered By: Ruby Parry Oxygen: No Urinary Catheter: Yes Services not available here: acute rehab
[2024-03-05 11:00] VITALS: RESP 16
[2024-03-05 15:00] VITALS: BP 128/77; PULSE 84; RESP 16; TEMP 36.7; O2SAT 95
--- NOTE | 2024-03-05 15:12 | PC.SOCIAL ---
Addendum entered and electronically signed by SATISH Salazar 03/05/24 16:39: Discharge planning: life skills worker heard back from Suman at [facility] and they received the prior authorization from [employer], so pt is officially accepted tomorrow for admit through insurance. Social work product marketing intern notified the pt and her family that the prior authorization with [employer] was approved. Social work to follow-up as needed. Original Note: Discharge planning: life skills worker gave family information about [facility]. life skills worker secure emailed neurology notes to [email or web address], for the pre-authorization request. [employer] has not approved yet. life skills worker to follow up before discharge tomorrow regarding pre-authorization. EMS is expected to orange picker pt at 11:30 tomorrow ().
--- NOTE | 2024-03-05 18:28 | PC.NURSE ---
End of shift: patient up to chair for meals and to BR using Venus steady. Tolerated activity well. External catheter changed after BM x2 today. Patient's VSS, alert and oriented x4. Patient's left sided weakness supported throughout the day. Left arm is flaccid and some weakness in left leg. Patient working with PT/OT BID. Patient tolerating a therapeutic diet of Orosi thick liquids and Pureed food. Patient afebrile and on RA this shift. Family visiting at bedside throughout the day.
[2024-03-05 19:00] VITALS: BP 153/81; PULSE 79; RESP 16; TEMP 37.1; O2SAT 93
[2024-03-05] MEDS: ATORVASTATIN 10 MG TABLET 20 MG PO (20:12)
[2024-03-05] MEDS: MELATONIN 3 MG TABLET PO (20:12)
[2024-03-05] MEDS: ENOXAPARIN 40 MG/0.4 ML INJ SUBCUT (20:13)
[2024-03-05 23:00] VITALS: BP 139/77; PULSE 81; RESP 16; TEMP 36.6; O2SAT 92
[2024-03-06 02:47] VITALS: BP 139/90; PULSE 69; RESP 16; TEMP 36.1; O2SAT 96
--- NOTE | 2024-03-06 05:09 | PC.NURSE ---
Shift note: Pt continue to have left sided paralysis. She is doing well with A1, GB, and Venus steady. Pt is emotionally stable, clear speech, alert and oriented. External catheter drained about 350ml but she asked to use the bathroom 1x and had about 250ml and smear of BM. Pt had adequate sleep. Pt had elevated Bp at the start of the shift at 1930 but stabilized. No deterioration in condition.
[2024-03-06 07:00] VITALS: BP 122/67; PULSE 89; RESP 16; TEMP 36.4; O2SAT 97
[2024-03-06] MEDS: lisinopriL 20 MG TABLET 30 MG PO (09:12)
[2024-03-06] MEDS: CLOPIDOGREL 75 MG TABLET PO (09:12)
[2024-03-06] MEDS: ASPIRIN 81 MG TABLET EC PO (09:13)
[2024-03-06] MEDS: FLUOXETINE HCL 10 MG CAPSULE 30 MG PO (09:13)
[2024-03-06] MEDS: BACLOFEN 10 MG TABLET 5 MG PO (09:13)
--- NOTE | 2024-03-06 11:25 | PC.SOCIAL ---
Discharge planning: passementerie worker met with pt and her before pt's discharge to [facility] this morning. passementerie worker discussed The Important Message from Medicare form with the pt and her and they have no plans of appealing pt's discharge from the hospital and are pleased that the pt is going to [facility]. Pt will be transported by non-emergent EMS at 11:30am. Social work to follow-up as needed.
--- NOTE | 2024-03-06 11:37 | PC.NURSE ---
Patient discharged at 1127 via non-emergent ambulance accompanied by spouse. Patient is alert and oriented x4. Venus steady to BR and chair for ambulation. Tolerating a thickened liquid and pureed diet. Patient incont. at times, brief checked and changed. VSS, afebrile and patient on RA. Discharge instructions signed and belongings sheet signed, medications returned to patient upon discharge. Nurse to Nurse given to ORLIN Farr at 1100.
--- NOTE | 2024-03-06 16:46 | P.IMPN_ITS ---
Progress Note: A&P Assessment and plan (1) Acute left hemiparesis: Problem details: - sudden onset sometime overnight, acute ischemic CVA confirmed on MRI. - discharge for inpatient rehabilitation at [facility] today. Status: Acute (2) Acute CVA (cerebrovascular accident): Problem details: - sudden onset of symptoms overnight while patient was sleeping, so exact time is unknown. Therefore, she is not a candidate for tPA. Appreciate stroke Neurology, Dr. Gaines's recommendations. - admitted as an inpatient for stroke - she has dysarthria and failed her bedside swallow study. She is tolerating a pureed diet and moderately thick liquids with assistance for meals without any signs of coughing or aspiration with this diet. I have ordered speech therapy to see her, but this will not be available until Sunday. - continue atorvastatin, LDL within goal - permissive hypertension complete, restart lisinopril - DVT prophylaxis with enoxaparin - monitor on telemetry, echo complete - MRI brain complete - continue PT and OT - start plavix and adjust aspirin as below Antithrombotic plan (per Dr. Pizarro, [place] stroke neuro, 03/02/24): - Conitnue home ASA 81mg daily x 3 weeks and then stop - Load with Plavix 300mg, followed by 75mg daily indefinitely Blood pressure: no premissive HTN, BP goal normotension Extended outpatient cardiac monitoring: N/A Additional workup or follow up: no Intensive statin therapy recommendations: Intensive statin therapy recommendations LIST: No, LDL is already at goal (< 70). Conitnue Home Lipitor 20mg daily Rehabilitation interventions as indicated. Sleep Apnea: NA Exercise: Daily aerobic > 30 minutes as tolerated. Prevention strategies as above. Outpatient clinic follow up: Local neurologist Status: Acute (3) Hyperlipidemia: Problem details: - LDL is <<70 - continue home statin, no change in dose Status: Chronic (4) Hypertension: Problem details: - resumed antihypertensives after period of permissive hypertension - BP control improving Status: Chronic (5) GERD (gastroesophageal reflux disease): Problem details: - EGD 03/2019 reflux, esophageal erosion, hiatal hernia - continue home PPI Status: Chronic (6) Stage 3 chronic kidney disease: Problem details: Creatinine stable, baseline is 0.8-0.9 Status: Chronic Plan 1. Reviewed plan and recommendations with patient. 2. Answered her questions. 3. She is agreeable. Time Spent With Patient Total time spent: 25 minutes Subjective Date Seen: 03/06/24 Interval history: Hospital day 6. Patient ready for discharge. Has no questions or concerns. Exam Narrative: Exam Narrative: General: No acute distress. Sleeping, arousable, more alert and interactive today, smiled, oriented. Cardiovascular: Regular rate and rhythm. No murmurs, gallops, or rubs. Chest: No increased work of breathing. Clear to auscultation bilaterally. No crackles or wheezes. Abdomen: Bowel sounds present. Soft, nondistended, nontender. No hepatosplenomegaly or masses. Extremities: No edema, no cyanosis or clubbing. Neuro: Persistent dense left hemiparesis of lower face, arm, and leg. No word- finding difficulties, speech is slurred. Drooling on the left without even realizing it. Const: Vital Signs, click to edit/add: Vital Signs - 24 hr 03/05/24 19:00 03/05/24 23:00 03/05/24 23:00 Temperature 98.8 F Pulse Rate [Pulse Oximeter] 79 81 Respiratory Rate 16 16 16 Blood Pressure [Ri ght FA] 153/81 H Pulse Oximetry 93 92 Oxygen Delivery Me thod Room Air Room Air 03/05/24 23:00 03/06/24 02:47 03/06/24 07:00 Temperature 98 F 96.9 F L Pulse Rate [Pulse Oximeter] 81 69 89 Respiratory Rate 16 16 16 Blood Pressure [Ri ght FA] 139/77 139/90 H Pulse Oximetry 92 96 Oxygen Delivery Me thod Room Air Room Air 03/06/24 07:00 03/06/24 07:00 Temperature 97.6 F Pulse Rate [Pulse Oximeter] 89 Respiratory Rate 16 16 Blood Pressure [Ri ght FA] 122/67 Pulse Oximetry 97 97 Oxygen Delivery Me thod Room Air Room Air Progress Note: Quality Stroke Contraindication Not Initiating IV-Tpa: Treatment not indicated (Unknown time of onset) Symptom Onset Unknown: Yes
== END 2024-03-06 11:27 | DRG 65 ==
LOC: ED 07:37 → MEDSURG 08:26
PROVIDERS: Admitting Provider Family Medicine; Emergency Provider Emergency Medicine; PCP Family Medicine; Visit Provider Family Medicine
DX: I63.9 Cerebral infarction, unspecified (principal); G81.94 Hemiplegia, unspecified affecting left nondominant side; E78.5 Hyperlipidemia, unspecified; R29.810 Facial weakness; R47.1 Dysarthria and anarthria; I10 Essential (primary) hypertension; K21.9 Gastro-esophageal reflux disease without esophagitis; I12.9 Hypertensive chronic kidney disease with stage 1 through stage 4 chronic kidney disease, or unspecified chronic kidney disease; N18.30 Chronic kidney disease, stage 3 unspecified; F32.A Depression, unspecified; N32.81 Overactive bladder; Z87.440 Personal history of urinary (tract) infections; I45.10 Unspecified right bundle-branch block; M85.80 Other specified disorders of bone density and structure, unspecified site
CPT/HCPCS: 36415; 51701; 70450; 70496; 70498; 70553; 80048; 80061; 80076; 83036; 83735; 84484; 85025; 85610; 85730; 92610; 93005; 93306; 94761; 97110; 97112; 97162; 97166; 97530; 97535; 99284; 99285; A9270; A9575; J1650; J2405; Q9967